=== PATIENT | male | born 1975 | race Caucasian/White ===

== ENCOUNTER 2017-11-29 20:25 | Emergency (ER) | payer OTHER ==
--- NOTE | 2017-11-29 20:43 | PDOC ---
History of Present Illness - General History Source: Patient Exam Limitations: No Limitations - History of Present Illness Initial Comments: 11/29/17 22:51 The patient is a 42-year-old male, with a significant past medical history of throat cancer, who presents to the ED with 2 weeks of lower back pain that progressively worsened today. The lower back pain is worse with movement and is accompanied by dysuria and frequency. Patient denies noting blood in his urine. He has been taking 5mg of oxycodone with mild relief of his symptoms. Patient also endorses a rash to the right lower extremity that has been getting worse over the past few days. He reports taking anabolic steroids and testosterone. Patient is currently on methadone. The patient denies any fevers, chills, nausea, vomiting, diarrhea, or abdominal pain. Denies any chest pain or shortness of breath. Allergies: NKA Surgical History: Right hand surgery -1994 Social History: Reports tobacco use, cocaine use, and heroin use. PCP: Dr. Leavitt <Chanell Bond - Last Filed: 11/29/17 23:48> <Gloria Collado - Last Filed: 11/30/17 02:25> - General Chief Complaint: Respiratory Stated Complaint: COUGH Past History <Chanell Bond - Last Filed: 11/29/17 23:48> - Past Medical History Asthma: No Cancer: Yes (THROAT) Cardiac Disorders: No COPD: No Diabetes: No GI Disorders: No Disorders: No HTN: No Kidney Stones: No Seizures: No - Surgical History Abdominal Surgery: No Appendectomy: No Cardiac Surgery: No Cholecystectomy: No Lung Surgery: No Neurologic Surgery: No Orthopedic Surgery: Yes (R hand sx in 1994) - Reproductive History Testicular Surgery: No - Immunization History Td Vaccination: Yes Immunization Up to Date: Yes - Suicide/Smoking/Psychosocial Hx Smoking Status: Yes Smoking History: Current every day smoker Have you smoked in the past 12 months: Yes Number of Cigarettes Smoked Daily: 20 'Breaking Loose' booklet given: 08/13/11 Hx Alcohol Use: No Drug/Substance Use Hx: Yes Substance Use Type: Cocaine, Heroin Hx Substance Use Treatment: Yes <Gloria Collado - Last Filed: 11/30/17 02:25> - Past Medical History Allergies/Adverse Reactions: Allergies Allergy/AdvReac Type Severity Reaction Status Date / Time No Known Allergies Allergy Verified 09/01/14 21:26 Home Medications: Ambulatory Orders Methadone 80 mg PO DAILY 11/29/17 Nandrolone Decanoate 11/29/17 Oxycodone HCl 5 mg PO PRN PRN 11/29/17 Testosterone 11/29/17 Review of Systems - Review of Systems Able to Perform ROS?: Yes Comments:: 11/29/17 22:51 CONSTITUTIONAL: Absent: fever, chills, diaphoresis, generalized weakness, malaise, loss of appetite HEENT: Absent: rhinorrhea, nasal congestion, throat pain, throat swelling, difficulty swallowing, mouth swelling, ear pain, eye pain, visual Changes CARDIOVASCULAR: Absent: chest pain, syncope, palpitations, irregular heart rate, lightheadedness , peripheral edema RESPIRATORY: Absent: cough, shortness of breath, dyspnea with exertion, orthopnea, wheezing, stridor, hemoptysis GASTROINTESTINAL: Absent: abdominal pain, abdominal distension, nausea, vomiting, diarrhea, constipation, melena, hematochezia GENITOURINARY: Present: (+)frequency, dysuria. Absent: urgency, hesitancy, hematuria, flank pain, genital pain MUSCULOSKELETAL: Present: (+)back pain. Absent: arthralgia, joint swelling SKIN: Absent: rash, itching, pallor HEMATOLOGIC/IMMUNOLOGIC: Absent: easy bleeding, easy bruising, lymphadenopathy, frequent infections ENDOCRINE: Absent: unexplained weight gain, unexplained weight loss, heat intolerance, cold intolerance NEUROLOGIC: Absent: headache, focal weakness or paresthesias, dizziness, unsteady gait, seizure, mental status changes, bladder or bowel incontinence PSYCHIATRIC: Absent: anxiety, depression, suicidal or homicidal ideation, hallucinations. <Chanell Bond - Last Filed: 11/29/17 23:48> *Physical Exam - Vital Signs Last Vital Signs Temp Pulse Resp BP Pulse Ox 98.7 F 74 14 150/100 98 11/29/17 20:57 11/29/17 20:57 11/29/17 20:57 11/29/17 20:57 11/29/17 20:57 - Physical Exam Comments: 11/29/17 22:53 GENERAL: Well developed, well nourished. Awake and alert. No acute distress. HEENT: Normocephalic, atraumatic. PERRLA, EOMI. No conjunctival pallor. Sclera are non- icteric. Moist mucous membranes. Oropharynx is clear. NECK: Supple. Full ROM. No JVD. Carotid pulses 2+ and symmetric, without bruits. No thyromegaly. No lymphadenopathy. CARDIOVASCULAR: Regular rate and rhythm. No murmurs, rubs, or gallops. Distal pulses are 2+ and symmetric. PULMONARY: No evidence of respiratory distress. Lungs clear to auscultation bilaterally. No wheezing, rales or rhonchi. ABDOMINAL: (+) Moderate RLQ tenderness. Soft. Non-distended. No rebound or guarding. No organomegaly. Normoactive bowel sounds. MUSCULOSKELETAL (+)CVA and flank tenderness, midline vertebral tenderness. Normal range of motion at all joints. No bony deformities. EXTREMITIES: No cyanosis. No clubbing. No edema. No calf tenderness. SKIN: Warm and dry. Normal capillary refill. No rashes. No jaundice. NEUROLOGICAL: Alert, awake, appropriate. Cranial nerves 2-12 intact. No deficits to light touch and temperature in face, upper extremities and lower extremities. PSYCHIATRIC: Cooperative. Good eye contact. Appropriate mood and affect. <Chanell Bond - Last Filed: 11/29/17 23:48> ED Treatment Course - ADDITIONAL ORDERS Additional order review: Laboratory Results 11/29/17 20:48 Urine Color Yellow Urine Appearance Clear Urine pH 5.5 Ur Specific [place] >= 1.030 Urine Protein Negative Urine Glucose (UA) Negative Urine Ketones Negative Urine Blood Trace-intact H Urine Nitrite Negative Urine Bilirubin 1+ H Urine Urobilinogen 1.0 Ur Leukocyte Esterase Negative Urine RBC 5-10 Urine WBC 0-2 Urine Bacteria 1+ <Chanell Bond - Last Filed: 11/29/17 23:48> - LABORATORY CBC & Chemistry Diagram: 11/30/17 00:19 11/30/17 00:19 <Gloria Collado - Last Filed: 11/30/17 02:25> Medical Decision Making - Medical Decision Making Documentation has been prepared under my direction and personally reviewed by me in its entirety. I attest that this documented accurately reflects all work, treatment, procedures and medical decision making performed by me. As noted above, this 42-year-old man with a history of using anabolic steroids and testosterone (unclear whether he is still using these substances), laryngeal carcinoma, chronic lower back pain , fatty liver and borderline hypertension presents with several day history of lower back pain radiating to the right flank/right lower quadrant. Patient also complained of mild burning with urination and intermittent blood in his urine. He also described an episode of hematospermia. He has not had any recent nausea/vomiting/ constipation or diarrhea. Patient has a history of parenteral opioid (heroin) and cocaine addiction. He is currently on daily methadone treatment. Exam as noted. Patient had right CVA/flank tenderness with some right lower quadrant tenderness. Urinalysis notable for microscopic exam showing RBCs (5-10 /hpf) as well as some WBCs and 1+ bacteria. Urine sent for culture and sensitivity Because of the patient's CVA/flank/right lower quadrant symptoms and microscopic hematuria, CT/spiral renal stone protocol performed. Impression as per Dr. Hennessy of the radiology staff: No urinary tract calculus or hydroureteronephrosis was identified. However, comparison was made to a prior CT exam a 08/22/07 and significant appendiceal thickening was found: Previous thickness was 0.6 cm. Tonight, appendix was 1.3 cm thick. There was also some possible development of minimal periappendiceal stranding. Appendix is positioned at the right upper pelvis. No evidence of perforation/abscess or other acute findings in the right lower quadrant. CT was otherwise unremarkable. Results discussed with the patient and his . Reexamination confirmed that the patient had moderate right lower quadrant tenderness without rebound or involuntary guarding. Plan to evaluate laboratory results (CBC/chemistry profile/INR) and surgical consult discussed with the patient. Patient states that he absolutely needed to go home for a time after laboratory tests were drawn. He was informed that he needed to sign out AGAINST MEDICAL ADVICE prior to leaving. Patient agreed to this. Laboratory tests were drawn and patient signed out AMA. He states he will be returning to the ER 11/30/17 02:22 Laboratory evaluation revealed mild elevation of white blood cell count 11,200 with out significant shift. Chemistry profile is essentially normal as is INR. <Gloria Collado - Last Filed: 11/30/17 02:25> *DC/Admit/Observation/Transfer - Attestations Scribe Attestion: 11/29/17 22:56 Documentation prepared by Chanell Bond, acting as hospital medical assistant for Gloria Collado MD. <Chanell Bond - Last Filed: 11/29/17 23:48> <Gloria Collado - Last Filed: 11/30/17 02:25> Diagnosis at time of Disposition: Abdominal pain Qualifiers: Abdominal location: right lower quadrant Qualified Code(s): R10.31 - Right lower quadrant pain - Discharge Dispostion Disposition: AGAINST MEDICAL ADVICE Condition at time of disposition: Guarded
[2017-11-29 20:56] LABS: PH,URINE 5.5 (4.5-8); URINE APPEARANCE Clear; URINE BILIRUBIN 1+ (NEGATIVE); URINE COLOR Yellow; URINE GLUCOSE (UA) Negative (NEGATIVE); URINE KETONE Negative (NEGATIVE); URINE LEUK ESTERASE Negative (NEGATIVE); URINE NITRITE Negative (NEGATIVE); URINE PROTEIN Negative (NEGATIVE)
[2017-11-29 20:59] VITALS: BP 150/100; PULSE 74; TEMP 98.7; BMI 32.6
[2017-11-29 21:41] LABS: URINE WBC 0-2 (0-2)
[2017-11-29 21:42] LABS: URINE BACTERIA 1+ /hpf (NEGATIVE)
[2017-11-30 01:16] LABS: BASO % 0.8 % (0-2.0); EOS % 4.5 % (0-4.5); HEMOGLOBIN 15.1 GM/dL (11.7-16.9); LYMPH % 25.6 % (8-40); MCH 28.8 pg (25.7-33.7); MCHC 32.1 g/dl (32.0-35.9); MEAN CELL VOLUME 89.6 fl (80-96); MEAN PLT VOLUME 7.4 fl (7.5-11.1); MONO % 7.7 % (3.8-10.2); NEUT % 61.4 % (42.8-82.8); PLATELET COUNT 404 K/MM3 (134-434); RBC 5.25 M/mm3 (4.00-5.60); RDW 15.5 % (11.9-15.9); WHITE BLOOD COUNT 11.6 K/mm3 (4.0-10.0)
[2017-11-30 01:29] LABS: INR 0.98 (0.83-1.09); PROTHROMBIN TIME (PATIENT) 11.6 SEC (9.7-13.0)
[2017-11-30 01:40] LABS: ALBUMIN 3.7 g/dl (3.4-5.0); ALK PHOS 45 U/L (45-117); ANION GAP 6 MMOL/L (8-16); BILIRUBIN,TOTAL 0.4 mg/dL (0.2-1); BLOOD UREA NITROGEN 12 mg/dL (7-18); CALCIUM 9.5 mg/dL (8.5-10.1); CHLORIDE 100 mmol/L (98-107); CO2 33 mmol/L (21-32); CREATININE 1.2 mg/dL (0.55-1.3); GLUCOSE,RANDOM 72 mg/dL (74-106); POTASSIUM 4.9 mmol/L (3.5-5.1); SGOT/AST 28 U/L (15-37); SGPT/ALT 30 U/L (13-61); SODIUM 140 mmol/L (136-145); TOT PROT 8.2 g/dl (6.4-8.2)
== END 2017-11-30 00:21 | disposition left against medical advice (07) ==
LOC: FER 20:25
DX: R10.31 Right lower quadrant pain (principal); F17.210 Nicotine dependence, cigarettes, uncomplicated
CPT/HCPCS: 36415; 74176; 80053; 81003; 81015; 85025; 85610; 87086; 99281-25

== ENCOUNTER 2017-12-27 16:18 | Emergency (ER) | payer OTHER ==
--- NOTE | 2017-12-27 16:24 | PDOC ---
Rapid Medical Evaluation Chief Complaint: Pain Time Seen by Provider: 12/27/17 16:20 Medical Evaluation: Allergies Allergy/AdvReac Type Severity Reaction Status Date / Time No Known Allergies Allergy Verified 09/01/14 21:26 12/27/17 16:21 I have performed a brief in person evaluation of the patient. The patient presents with a CC of: Abdominal pain Pt is a 42 Yo male who has a hx of RLQ pain. Denies fever, denies hx of abd surgeries. PE: Skin: No visible rash Lungs: Clear Heart:RRR Abd: Pt has RLQ tenderness. MS: Moves all extremities without difficulty Neuro: Alert and oriented Psych: Appropriate affect I have ordered the following: abd protocol at this time. The patient will proceed to the ED for further evaluation. Discharge Disposition - Diagnosis Abdominal pain Qualifiers: Abdominal location: right lower quadrant Qualified Code(s): R10.31 - Right lower quadrant pain - Referrals Referrals: Yudelka Leavitt MD [Primary Care Provider] - - Patient Instructions - Post Discharge Activity
[2017-12-27 16:28] VITALS: BP 129/91; PULSE 108; TEMP 98.6; BMI 34.7
[2017-12-27 17:01] LABS: BASO % 0.3 % (0-2.0); EOS % 5.3 % (0-4.5); HEMATOCRIT 44.7 % (35.4-49); HEMOGLOBIN 15.3 GM/dL (11.7-16.9); LYMPH % 26.2 % (8-40); MCH 29.5 pg (25.7-33.7); MCHC 34.3 g/dl (32.0-35.9); MEAN CELL VOLUME 86.1 fl (80-96); MEAN PLT VOLUME 7.3 fl (7.5-11.1); MONO % 8.1 % (3.8-10.2); NEUT % 60.1 % (42.8-82.8); PLATELET COUNT 282 K/MM3 (134-434); RBC 5.19 M/mm3 (4.00-5.60); WHITE BLOOD COUNT 8.2 K/mm3 (4.0-10.0)
--- NOTE | 2017-12-27 17:31 | PDOC ---
History of Present Illness - General Chief Complaint: Pain Stated Complaint: CHEST PAIN Time Seen by Provider: 12/27/17 16:20 - History of Present Illness Initial Comments: 12/27/17 17:26 Patient eloped before I met or examined him Patient was not in examining room, not able to find in ED. Patient was called multiple times by nurse. Was informed patient had a IV line in place and presumed to have eloped. Incident report filled out. Police called. Past History - Past Medical History Allergies/Adverse Reactions: Allergies Allergy/AdvReac Type Severity Reaction Status Date / Time No Known Allergies Allergy Verified 12/27/17 16:25 Home Medications: Ambulatory Orders Methadone 80 mg PO DAILY 11/29/17 Nandrolone Decanoate 11/29/17 Oxycodone HCl 5 mg PO PRN PRN 11/29/17 Testosterone 11/29/17 Asthma: No Cancer: Yes (THROAT) Cardiac Disorders: No COPD: No Diabetes: No GI Disorders: No Disorders: No HTN: No Kidney Stones: No Seizures: No - Surgical History Abdominal Surgery: No Appendectomy: No Cardiac Surgery: No Cholecystectomy: No Lung Surgery: No Neurologic Surgery: No Orthopedic Surgery: Yes (R hand sx in 1994) - Reproductive History Testicular Surgery: No - Immunization History Td Vaccination: Yes Immunization Up to Date: Yes - Suicide/Smoking/Psychosocial Hx Smoking Status: Yes Smoking History: Current every day smoker Have you smoked in the past 12 months: Yes Number of Cigarettes Smoked Daily: 20 Information on smoking cessation initiated: No 'Breaking Loose' booklet given: 08/13/11 Hx Alcohol Use: No Drug/Substance Use Hx: Yes Substance Use Type: Cocaine, Heroin Hx Substance Use Treatment: Yes *Physical Exam - Vital Signs Last Vital Signs Temp Pulse Resp BP Pulse Ox 98.6 F 108 H 18 129/91 98 12/27/17 16:20 12/27/17 16:20 12/27/17 16:20 12/27/17 16:20 12/27/17 16:20 ED Treatment Course - LABORATORY CBC & Chemistry Diagram: 12/27/17 16:40 12/27/17 16:40 - ADDITIONAL ORDERS Additional order review: 12/27/17 16:40 RBC 5.19 MCV 86.1 MCHC 34.3 RDW 15.0 MPV 7.3 L Neutrophils % 60.1 Lymphocytes % 26.2 Monocytes % 8.1 Eosinophils % 5.3 H Basophils % 0.3 *DC/Admit/Observation/Transfer Diagnosis at time of Disposition: Abdominal pain Qualifiers: Abdominal location: right lower quadrant Qualified Code(s): R10.31 - Right lower quadrant pain - Referrals Referrals: Yudelka Leavitt MD [Primary Care Provider] - - Patient Instructions - Post Discharge Activity
== END 2017-12-27 17:31 | disposition left against medical advice (07) ==
LOC: JER 16:18
DX: R10.31 Right lower quadrant pain (principal)
CPT/HCPCS: 36415; 83690; 85025; 99281-25

== ENCOUNTER 2017-12-27 19:39 | Emergency (ER) | payer OTHER ==
[2017-12-27 19:48] VITALS: BMI 32.8
[2017-12-27] MEDS ORDERED: ASPIRIN 81 MG CHEWABLE TABLETS PO ONE (19:48)
--- NOTE | 2017-12-27 19:48 | PDOC ---
Rapid Medical Evaluation Chief Complaint: Chest Pain Time Seen by Provider: 12/27/17 19:45 Medical Evaluation: Allergies Allergy/AdvReac Type Severity Reaction Status Date / Time No Known Allergies Allergy Verified 12/27/17 16:25 12/27/17 19:46 I have performed a brief in person evaluation of this patient. This patient presents with a CC of: CP and abd pain Pt is a 42 Yo male who eloped with an IV in place and was brought back to the ED and had the IV removed. Pt has a hx of IV drug use and now admits to substernal CP with lower extremity edema. Pt denies IV drug after eloping from ED returning. PE: Skin: Clear Lungs: Clear Heart: RRR Abd: No pain MS: Moves all extremities without difficulty. Neuro: Alert and oriented Psych: Appropriate affect I have ordered the following: Pt had abd protocol labs from previous visit today and i will add cardiac workup. The patient will proceed to the ED for further evaluation. Discharge Disposition - Diagnosis Chest pain Qualifiers: Chest pain type: unspecified Qualified Code(s): R07.9 - Chest pain, unspecified - Referrals Referrals: Yudelka Leavitt MD [Primary Care Provider] - - Patient Instructions - Post Discharge Activity
[2017-12-27] MEDS ORDERED: ASPIRIN 81 MG CHEWABLE TABLETS ONE (20:16)
[2017-12-27 20:58] LABS: INR 1.08 (0.83-1.09); PROTHROMBIN TIME (PATIENT) 12.8 SEC (9.7-13.0)
[2017-12-27 21:00] LABS: MAGNESIUM 2.1 mg/dL (1.8-2.4)
--- NOTE | 2017-12-27 22:41 | PDOC ---
History of Present Illness - General History Source: Patient Exam Limitations: No Limitations - History of Present Illness Initial Comments: 12/27/17 22:42 The patient is a 42-year-old male, with a significant past medical history of throat cancer, who presents to the ED with 4 weeks of intermittent, throbbing, right lower quadrant pain. He reports being evaluated at [facility] ED about 3 weeks ago for pain, had an abdominal CT, and was told he has an appendicitis 5x bigger than it was 10 years ago. He states he left AMA when he was told he needed surgery because he cant have surgery right now. He states the pain resolved, however, has been experiencing localized throbbing to his RLQ intermittently in the last 5 days. He states his pain has made him very anxious and also complains of palpitations and chest discomfort. The patient is currently on methadone. He states he has a follow-up appt with Dr. Glover next week. The patient denies any fevers, chills, nausea, vomiting, diarrhea. The patient denies shortness of breath. He denies any urinary complaints. He denies any diarrhea or constipation. Allergies: NKDA Surgical History: Right hand surgery -1994 Social History: Reports tobacco use, cocaine use, and IV heroin use. PCP: Dr. Leavitt <Avani Carter - Last Filed: 12/27/17 22:41> <Yumiko Gonzalez - Last Filed: 12/27/17 23:00> - General Chief Complaint: Pain Stated Complaint: CHEST PAIN Time Seen by Provider: 12/27/17 19:45 Past History <Avani Carter - Last Filed: 12/27/17 22:41> - Past Medical History Asthma: No Cancer: Yes (THROAT) Cardiac Disorders: No COPD: No Diabetes: No GI Disorders: No Disorders: No HTN: No Kidney Stones: No Seizures: No - Surgical History Abdominal Surgery: No Appendectomy: No Cardiac Surgery: No Cholecystectomy: No Lung Surgery: No Neurologic Surgery: No Orthopedic Surgery: Yes (R hand sx in 1994) - Reproductive History Testicular Surgery: No - Immunization History Td Vaccination: Yes Immunization Up to Date: Yes - Suicide/Smoking/Psychosocial Hx Smoking Status: Yes Smoking History: Current every day smoker Have you smoked in the past 12 months: Yes Number of Cigarettes Smoked Daily: 20 Information on smoking cessation initiated: No 'Breaking Loose' booklet given: 08/13/11 Hx Alcohol Use: No Drug/Substance Use Hx: Yes Substance Use Type: Cocaine, Heroin Hx Substance Use Treatment: Yes <Yumiko Gonzalez - Last Filed: 12/27/17 23:00> - Past Medical History Allergies/Adverse Reactions: Allergies Allergy/AdvReac Type Severity Reaction Status Date / Time No Known Allergies Allergy Verified 12/27/17 19:49 Home Medications: Ambulatory Orders Methadone 80 mg PO DAILY 11/29/17 Nandrolone Decanoate 11/29/17 Oxycodone HCl 5 mg PO PRN PRN 11/29/17 Testosterone 11/29/17 Review of Systems - Review of Systems Able to Perform ROS?: Yes Comments:: 12/27/17 22:42 CONSTITUTIONAL: Absent: fever, chills, diaphoresis, generalized weakness, malaise, loss of appetite HEENT: Absent: rhinorrhea, nasal congestion, throat pain, throat swelling, difficulty swallowing, mouth swelling, ear pain, eye pain, visual Changes CARDIOVASCULAR: (+) palpitations, chest discomfort. Absent: chest pain, syncope, irregular heart rate, lightheadedness, peripheral edema RESPIRATORY: Absent: cough, shortness of breath, dyspnea with exertion, orthopnea, wheezing, stridor, hemoptysis GASTROINTESTINAL: (+) RLQ abdominal pain, Absent: abdominal distension, nausea, vomiting, diarrhea , constipation, melena, hematochezia GENITOURINARY: Absent: dysuria, frequency, urgency, hesitancy, hematuria, flank pain, genital pain MUSCULOSKELETAL: Absent: myalgia, arthralgia, joint swelling SKIN: Absent: rash, itching, pallor HEMATOLOGIC/IMMUNOLOGIC: Absent: easy bleeding, easy bruising, lymphadenopathy, frequent infections ENDOCRINE: Absent: unexplained weight gain, unexplained weight loss, heat intolerance, cold intolerance NEUROLOGIC: Absent: headache, focal weakness or paresthesias, dizziness, unsteady gait, seizure, mental status changes, bladder or bowel incontinence PSYCHIATRIC: Absent: anxiety, depression, suicidal or homicidal ideation, hallucinations. <Avani Carter - Last Filed: 12/27/17 22:41> *Physical Exam - Vital Signs Last Vital Signs Temp Pulse Resp BP Pulse Ox 98 F 96 H 18 191/97 H 99 12/27/17 19:44 12/27/17 19:44 12/27/17 19:44 12/27/17 19:44 12/27/17 19:44 - Physical Exam Comments: 12/27/17 22:42 GENERAL: Well developed, well nourished. Awake and alert. No acute distress. HEENT: Normocephalic, atraumatic. PERRLA, EOMI. No conjunctival pallor. Sclera are non- icteric. Moist mucous membranes. Oropharynx is clear. NECK: Supple. Full ROM. No JVD. Carotid pulses 2+ and symmetric, without bruits. No thyromegaly. No lymphadenopathy. CARDIOVASCULAR: Regular rate and rhythm. No murmurs, rubs, or gallops. Distal pulses are 2+ and symmetric. PULMONARY: No evidence of respiratory distress. Lungs clear to auscultation bilaterally. No wheezing, rales or rhonchi. ABDOMINAL: Soft. Non-tender. Non-distended. No rebound or guarding. No organomegaly. Normoactive bowel sounds. MUSCULOSKELETAL Normal range of motion at all joints. No bony deformities or tenderness. No CVA tenderness. EXTREMITIES: (+) Bilateral 2+ pitting edema with chronic venous stasis changes. Slightly erythematous. No cyanosis. No clubbing. No calf tenderness. SKIN: Warm and dry. Normal capillary refill. No rashes. No jaundice. NEUROLOGICAL: Alert, awake, appropriate. Cranial nerves 2-12 intact. Normoreflexic in the upper and lower extremities. Normal speech. Toes are down-going bilaterally. Gait is normal without ataxia. PSYCHIATRIC: Cooperative. Good eye contact. Appropriate mood and affect. <Avani Carter - Last Filed: 12/27/17 22:41> - Vital Signs Last Vital Signs Temp Pulse Resp BP Pulse Ox 98 F 96 H 18 191/97 H 99 12/27/17 19:44 12/27/17 19:44 12/27/17 19:44 12/27/17 19:44 12/27/17 19:44 <Yumiko Gonzalez - Last Filed: 12/27/17 23:00> ED Treatment Course - ADDITIONAL ORDERS Additional order review: Laboratory Results 12/27/17 12/27/17 20:22 20:21 PT with INR 12.80 INR 1.08 Magnesium 2.1 Creatine Kinase 220 Creatine Kinase Index 1.0 CK-MB (CK-2) 2.3 Troponin I < 0.02 - Medications Given in the ED: ED Medications Discontinued Medications Generic Name Dose Route Start Last Admin Trade Name Freq PRN Reason Stop Dose Admin Aspirin 162 mg 12/27/17 19:48 12/27/17 20:22 Asa - PO 12/27/17 19:49 162 mg ONCE ONE Administration <Avani Carter - Last Filed: 12/27/17 22:41> - ADDITIONAL ORDERS Additional order review: Laboratory Results 12/27/17 12/27/17 20:22 20:21 PT with INR 12.80 INR 1.08 Magnesium 2.1 Creatine Kinase 220 Creatine Kinase Index 1.0 CK-MB (CK-2) 2.3 Troponin I < 0.02 - RADIOLOGY Radiology Studies Ordered: Category Date Time Status DUPLEX VASCUL US-2LEGS [US] Stat Ultrasound 12/27/17 21:56 Taken - Medications Given in the ED: ED Medications Discontinued Medications Generic Name Dose Route Start Last Admin Trade Name Freq PRN Reason Stop Dose Admin Aspirin 162 mg 12/27/17 19:48 12/27/17 20:22 Asa - PO 12/27/17 19:49 162 mg ONCE ONE Administration <Yumiko Gonzalez - Last Filed: 12/27/17 23:00> *DC/Admit/Observation/Transfer - Attestations Scribe Attestion: 12/27/17 22:44 Documentation prepared by Avani Carter, acting as medical appointment clerk for Yumiko Gonzalez MD <Avani Carter - Last Filed: 12/27/17 22:41> <Yumiko Gonzalez - Last Filed: 12/27/17 23:00> Diagnosis at time of Disposition: Chronic abdominal pain Chest pain Qualifiers: Chest pain type: unspecified Qualified Code(s): R07.9 - Chest pain, unspecified - Discharge Dispostion Disposition: HOME Condition at time of disposition: Stable - Referrals Referrals: Yudelka Leavitt MD [Primary Care Provider] - Edmond Glover MD [Staff Physician] - - Patient Instructions Printed Discharge Instructions: DI for Abdominal Pain-Adult, DI for Palpitations, DI for Peripheral Edema -- Bilateral Additional Instructions: Please follow up with your home health attendant for the abdominal pain you have been having for some time. You may need a colonoscopy. Call Dr Glover and make an appointment with him for further evaluation You need to see your primary doctor because of the swelling in your legs. - Post Discharge Activity
[2017-12-27 23:22] VITALS: PULSE 88; TEMP 97.8
[2017-12-27 23:25] VITALS: BP 160/93
--- NOTE | 2017-12-29 11:11 | EKG ---
Test Reason : Blood Pressure : / mmHG Vent. Rate : 092 BPM Atrial Rate : 092 BPM P-R Int : 138 ms QRS Dur : 092 ms QT Int : 356 ms P-R-T Axes : 058 042 021 degrees QTc Int : 440 ms NORMAL SINUS RHYTHM MINIMAL VOLTAGE CRITERIA FOR LVH, MAY BE NORMAL VARIANT BORDERLINE ECG WHEN COMPARED WITH ECG OF 28-AUG-2005 09:13, NO SIGNIFICANT CHANGE WAS FOUND Confirmed by KAELA SHETTY, BERYL ([id number]) on 12/29/2017 11:11:10 AM Referred By: Confirmed By:BERYL SHERWOOD MD
== END 2017-12-27 23:32 | disposition home or self-care (01) ==
LOC: JER 19:39
DX: R07.9 Chest pain, unspecified (principal); R10.31 Right lower quadrant pain; G89.29 Other chronic pain; Z85.819 Personal history of malignant neoplasm of unspecified site of lip, oral cavity, and pharynx
CPT/HCPCS: 36415; 71046-TC-FY; 82550; 82553; 83735; 84484; 85610; 93005; 93010; 93970-TC; 99282-25

== ENCOUNTER 2018-06-13 12:06 | Inpatient (IN) | payer OTHER ==
[2018-06-13 16:51] VITALS: BMI 36.9
--- NOTE | 2018-06-13 17:51 | HP ---
COWS - Scale Resting Pulse: 2= VT 101-120 Sweatin= Chills/Flushing Restless Observation: 1= Difficult to Sit Still Pupil Size: 1= Pupils >than Normal Bone or Joint Aches: 1= Mild Discomfort Runny Nose/ Eye Tearin= Nasal Congestion GI Upset > 30mins: 1= Stomach Cramp Tremor Observation: 1= Tremor [place], Not Seen Yawning Observation: 1= 1-2x During Session Anxiety or Irritability: 2=Irritable/Anxious Goose Flesh Skin: 0=Smooth Skin COWS Score: 12 CIWA Score - Admission Criteria [facility]ASAS Guidelines: Admission for Medically Managed Detox: Requires at least one of the followin. CIWA greater than 12 2. Seizures within the past 24 hours 3. Delirium tremens within the past 24 hours 4. Hallucinations within the past 24 hours 5. Acute intervention needed for co occurring medical disorder 6. Acute intervention needed for co occurring psychiatric disorder 7. Severe withdrawal that cannot be handled at a lower level of care (continued vomiting, continued diarrhea, abnormal vital signs) requiring intravenous medication and/or fluids 8. Admission ROS [facility] Chief Complaint: heroin withdrawal symptoms Allergies/Adverse Reactions: Allergies Allergy/AdvReac Type Severity Reaction Status Date / Time No Known Allergies Allergy Verified 06/13/18 16:43 History of Present Illness: 43 yo male with hx of heroin (IV) dependence is here seeking detox d/t withdrawal symptoms. Denies engaging in needle sharing activities. Report mandated to attend by parole. Patient reports he AMA the [facility]MTP at [facility] two months ago and pain management. PMHX: GERD, Back pain. Psych: Anxiety. Denies hx of seizures, overdose or blackouts Reports no significant period of sobriety Last detox [facility] 10 years ago. Others' Prescriptions Patient Name: Too Ordoñez Date: 1975 Address: [address] [place] [address] Sex: Male Rx Written Rx Dispensed Drug Quantity Days Supply Prescriber Name 02/18/2018 02/22/2018 oxycodone hcl 5 mg tablet 90 30 Adrian Hooper M 01/04/2018 01/21/2018 oxycodone hcl 5 mg tablet 90 30 Adrian Hooper M 12/05/2017 12/09/2017 oxycodone hcl 5 mg tablet 90 30 Adrian Hooper M 11/11/2017 11/12/2017 oxycodone hcl 5 mg tablet 90 30 Adrian Hooper M 09/16/2017 09/19/2017 oxycodone-acetaminophen 5-325 mg tab 90 30 Adrian Hooper M Patient Name: Too Ordoñez Date: 1975 Address: [address] [place] [address] Sex: Male Rx Written Rx Dispensed Drug Quantity Days Supply Prescriber Name 12/08/2017 12/17/2017 clonazepam 1 mg tablet 10 10 Dagmar, Ammir S Patient Name: Too Ordoñez Date: 1975 Address: [address] [place] [address] Sex: Male Rx Written Rx Dispensed Drug Quantity Days Supply Prescriber Name 08/31/2017 08/31/2017 oxycodone-acetaminophen 5-325 mg tab 28 7 Adrian Hooper M Exam Limitations: No Limitations - Ebola screening Have you traveled outside of the country in the last 21 days: No Have you had contact with anyone from an Ebola affected area: No - Review of Systems Constitutional: Chills, Diaphoresis, Changes in sleep, Other (weight gain 50 lbs in past five months) EENT: reports: Nose Congestion Respiratory: reports: No Symptoms reported Cardiac: reports: No Symptoms Reported GI: reports: Abdominal cramping : reports: No Symptoms Reported Musculoskeletal: reports: Back Pain Integumentary: reports: Other (darkening skin both lower extremites, bilateral leg swelling) Neuro: reports: No Symptoms reported Endocrine: reports: Increased Thirst, Unexplained Weight Gain Hematology: reports: No Symptoms Reported Psychiatric: reports: Orientated x3, Anxious Other Systems: Reviewed and Negative Patient History - Patient Medical History Hx Anemia: No Hx Asthma: No Hx Chronic Obstructive Pulmonary Disease (COPD): No Hx Cancer: Yes (THROAT) Hx Cardiac Disorders: No Hx Congestive Heart Failure: No Hx Hypertension: No Hx Hypercholesterolemia: No Hx Pacemaker: No HX Cerebrovascular Accident: No Hx Seizures: No Hx Dementia: No Hx Diabetes: No Hx Gastrointestinal Disorders: Yes (GERD ) Hx Liver Disease: No Hx Genitourinary Disorders: No Hx Sexually Transmitted Disorders: No Hx Renal Disease (ESRD): No Hx Thyroid Disease: No Hx Human Immunodeficiency Virus (HIV): No Hx Hepatitis C: No Hx Depression: No Hx Suicide Attempt: No Hx Bipolar Disorder: No Hx Schizophrenia: No - Patient Surgical History Past Surgical History: Yes Hx Neurologic Surgery: No Hx Cataract Extraction: No Hx Cardiac Surgery: No Hx Lung Surgery: No Hx Breast Surgery: No Hx Breast Biopsy: No Hx Abdominal Surgery: No Hx Appendectomy: No Hx Cholecystectomy: No Hx Genitourinary Surgery: No Hx Section: No Hx Orthopedic Surgery: Yes (R hand sx in 1994) - PPD History Previous Implant?: No Documented Results: Negative w/proof Date: 08/15/11 PPD to be Administered?: Yes - Smoking Cessation Smoking history: Current every day smoker Have you smoked in the past 12 months: Yes Aproximately how many cigarettes per day: 20 Hx Chewing Tobacco Use: No Initiated information on smoking cessation: Yes 'Breaking Loose' booklet given: 06/13/18 - Substance & Tx. History Hx Alcohol Use: No Hx Substance Use: Yes Substance Use Type: Heroin Hx Substance Use Treatment: Yes ([facility] detox 10 years ago ) - Substances abused Heroin Substance route: Injection Frequency: Daily Amount used: 30 bags Age of first use: 26 Date of last use: 06/12/18 Family Disease History - Family Disease History Family Disease History: Diabetes: Mother (alive ), Heart Disease: Father ([place], ), Respiratory: Mother Admission Physical Exam [facility] - Vital Signs Vital Signs: Vital Signs - 24 hr 06/13/18 06/13/18 16:48 16:50 Temperature 98.8 F 98.8 F Pulse Rate 108 H 108 H Respiratory 18 18 Rate Blood Pressure 131/78 131/78 - Physical General Appearance: Yes: Disheveled, Mild Distress, Obese, Tremorous, Sweating, Anxious HEENTM: Yes: EOMI, Hearing grossly Normal, Normal ENT Inspection, Normal Voice, WILLY, Pharynx Normal, Tm's normal, Other (cheilitis) Respiratory: Yes: Chest Non-Tender, Lungs Clear, Normal Breath Sounds, No Respiratory Distress, No Accessory Muscle Use Neck: Yes: No masses,lesions,Nodules, Trachea in good position Breast: Yes: Breast Exam Deferred Cardiology: Yes: Regular Rhythm, Regular Rate Abdominal: Yes: Normal Bowel Sounds, Non Tender, Soft, Protuberent Genitourinary: Yes: Within Normal Limits Back: Yes: Normal Inspection Musculoskeletal: Yes: full range of Motion, Gait Steady, Pelvis Stable, Back pain Extremities: Yes: Normal Capillary Refill, Normal Range of Motion, Non-Tender, Other (+hyperpigmentation b/l lower extremities, +2 edema b/l lower extremities) Neurological: Yes: facilities officer II-XII NML intact, Fully Oriented, Alert, Motor Strength 5/5, Normal Response, Depressed Affect Integumentary: Yes: Normal Color, Warm, Diaphoresis, Track Dennis (left anticubital fossa, no infection) Lymphatic: Yes: Within Normal Limits - Diagnostic (1) Opioid dependence with withdrawal Current Visit: Yes Status: Acute (2) IVDU (intravenous drug user) Current Visit: Yes Status: Acute (3) GERD (gastroesophageal reflux disease) Current Visit: Yes Status: Chronic (4) Chronic back pain Current Visit: Yes Status: Chronic Cleared for Admission [facility] - Detox or Rehab [facility] Level of Care: Medically Managed Detox Regimen/Protocol: Methadone Breathalyzer - Breathalyzer Breathalyzer: 0 Urine Drug Screen - Test Device Lot number: [id number] Expiration date: 01/21/20 - Control Is test valid?: Yes - Results Drug screen NEGATIVE: No Urine drug screen results: KAREN-Cocaine, FEN-Fentanyl, MOP-Opiates, OXY-Oxycodone , MTD-Methadone Inpatient Rehab Admission - Rehab Decision to Admit Inpatient rehab admission?: No
[2018-06-13] MEDS ORDERED: BISMUTH SUBSALICYLATE 524 MG/30 ML UD PO PRN (17:58)
[2018-06-13] MEDS ORDERED: MENTHOL/PHENOL 1 EACH UD MM PRN (17:58)
[2018-06-13] MEDS ORDERED: MAGNESIUM CITRATE 300 ML BOTTLE PO PRN (17:58)
[2018-06-13] MEDS ORDERED: ONDANSETRON *ODT* 4 MG TABLET SL PRN (17:58)
[2018-06-13] MEDS ORDERED: NICOTINE POLACRILEX 2 MG GUM BUC PRN (17:58)
[2018-06-13] MEDS ORDERED: ACETAMINOPHEN 325 MG TABLET (FP) PO PRN ×2 (17:58)
[2018-06-13] MEDS ORDERED: IBUPROFEN 400 MG TABLET (FP) PO PRN ×2 (17:58→18:04)
[2018-06-13] MEDS ORDERED: MAGNESIUM HYDROX 2400MG/30ML ORAL SUSPENSION 30 ML CUP PO PRN (17:58)
[2018-06-13] MEDS ORDERED: MAG HYDROX/AL HYDROX/SIMETH 30 ML UNIT-DOSE CUP PO PRN (17:58)
[2018-06-13] MEDS ORDERED: METHADONE HCL 10 MG TABLET (FOR DETOX USE ONLY) PO ONE ×2 (18:45→23:00)
[2018-06-13] MEDS: THIAMINE HCL 100 MG TABLET (FP) PO SCH (22:26)
[2018-06-13] MEDS: MELATONIN 5 MG TABLETS PO PRN (22:26)
[2018-06-13] MEDS: METHOCARBAMOL 500 MG TABLET PO PRN (22:27)
[2018-06-13] MEDS: RANITIDINE HCL 150 MG TABLET (FP) PO SCH (22:27)
--- NOTE | 2018-06-14 08:12 | CONSULT ---
[facility] Psychiatric Consult - Data Date of interview: 06/14/18 Admission source: [place] Identifying data: Ms Ordoñez is a 43 years old single male, unemployed with no source of income, domiciled living in a one family house seeking detox treatment for opioid Substance Abuse History: Reports history of heroin use. Refer to addiction counselor's summary for further information Medical History: Significant for GERD, back pain, history of treatment for throat cancer and orthosurgery for fracture ofright hand in 1994. Smokes cigarettes 1 ppd Psychiatric History: Patient reports that he [facility] , 2014 and . Reports while in [facility], he spent a lot of time in solitary confinement. 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 He said that he was offered medication but declined it. Reports that since his release, he has been feeling anxious, experiencing a lot of nightmares, flasbacks and being disturb by noises etc. Denies previous psychiatric hospitalization or suicidal attempt. At present, reports feeling depressed, anxious and sleeping poorly Physical/Sexual Abuse/Trauma History: Denies history of emotional, physical or sexual abuse as well ass DV relationship Additional Comment: Reports history of previous arrests and has served in [facility] 3 times: , and . He is currently on parole till April 2019 Mental Status Exam - Mental Status Exam Alert and Oriented to: Time, Place, Person Cognitive Function: Fair Patient Appearance: Disheveled Mood: Depressed, Anxious Affect: Appropriate Patient Behavior: Cooperative Speech Pattern: Clear Voice Loudness: Normal Thought Process: Intact, Goal Oriented Hallucinations: Denies Suicidal Ideation: Denies Homicidal Ideation: Denies Insight/Judgement: Poor Sleep: Poorly Appetite: Good Muscle strength/Tone: Normal Gait/Station: Normal Psychiatric Findings - Problem List ([place] 1, 2,3) (1) Anxiety disorder Current Visit: Yes Status: Chronic (2) PTSD (post-traumatic stress disorder) Current Visit: Yes Status: Ruled-out (3) Substance induced mood disorder Current Visit: Yes Status: Acute (4) Substance-induced anxiety disorder Current Visit: Yes Status: Acute (5) Substance-induced sleep disorder Current Visit: Yes Status: Acute (6) Opioid dependence with withdrawal Current Visit: Yes Status: Acute (7) Nicotine dependence Current Visit: Yes Status: Chronic (8) Chronic back pain Current Visit: Yes Status: Chronic (9) GERD (gastroesophageal reflux disease) Current Visit: Yes Status: Chronic - Initial Treatment Plan Initial Treatment Plan: 1) Start Melatonin 5 mg po HS prn for insomnia. 2) Continue inpatient detoxification
[2018-06-14] MEDS ORDERED: METHADONE HCL 5 MG TABLET (FOR DETOX USE ONLY) PO ONE (10:00)
[2018-06-14] MEDS: RANITIDINE HCL 150 MG TABLET (FP) PO SCH ×2 (10:09→22:17)
[2018-06-14] MEDS: NICOTINE 21 MG/24 HOURS TOPICAL PATCH TD SCH (10:09)
[2018-06-14] MEDS: PRENATAL VITAMINS W/ FOLIC ACID TABLET (FP) PO SCH (10:09)
[2018-06-14] MEDS: cloNIDine HCL 0.1 MG TABLET PO PRN ×2 (10:12→22:17)
[2018-06-14] MEDS: METHOCARBAMOL 500 MG TABLET PO PRN ×2 (10:13→22:17)
--- NOTE | 2018-06-14 10:32 | EKG ---
Test Reason : Blood Pressure : / mmHG Vent. Rate : 088 BPM Atrial Rate : 088 BPM P-R Int : 146 ms QRS Dur : 086 ms QT Int : 380 ms P-R-T Axes : 056 029 013 degrees QTc Int : 459 ms NORMAL SINUS RHYTHM POSSIBLE LEFT ATRIAL ENLARGEMENT LEFT VENTRICULAR HYPERTROPHY ABNORMAL ECG WHEN COMPARED WITH ECG OF 27-DEC-2017 19:54, NO SIGNIFICANT CHANGE WAS FOUND Confirmed by BRADY SHETTY, YUNIOR ([id number]) on 06/14/2018 10:31:58 AM Referred By: Confirmed By:YUNIOR ABREU MD
--- NOTE | 2018-06-14 11:11 | PN ---
BHS COWS - Scale Resting Pulse: 1= [place] 81-100 Sweatin=Flushed/Facial Moisture Restless Observation: 1= Difficult to Sit Still Pupil Size: 0= Normal to Room Light Bone or Joint Aches: 2= Severe Diffuse Aches Runny Nose/ Eye Tearin= Runny Nose/Eyes GI Upset > 30mins: 1= Stomach Cramp Tremor Observation of Outstretched Hands: 2= Slight Tremor Visible Yawning Observation: 2= >3x During Session Anxiety or Irritability: 2=Irritable/Anxious Goose Flesh Skin: 3=Piloerection COWS Score: 18 BHS Progress Note (SOAP) Subjective: cold sweats shakes interrupted sleep body aches muscle cramps Objective: 06/14/18 11:14 Vital Signs Temperature 98.2 F 06/14/18 10:28 Pulse Rate 83 06/14/18 10:28 Respiratory Rate 18 06/14/18 10:28 Blood Pressure 122/62 06/14/18 10:28 O2 Sat by Pulse Oximetry (%) labs pending aaox3 lying in bed no acute distress Assessment: 06/14/18 11:14 withdrawal sx Plan: continue detox increase fluids labs pending robaxin ordered prn
[2018-06-14 12:10] LABS: HEMATOCRIT 38.6 % (35.4-49); HEMOGLOBIN 13.2 GM/dL (11.7-16.9); MCH 32.2 pg (25.7-33.7); MCHC 34.3 g/dl (32.0-35.9); MEAN CELL VOLUME 93.9 fl (80-96); MEAN PLT VOLUME 7.3 fl (7.5-11.1); PLATELET COUNT 261 K/MM3 (134-434); RBC 4.11 M/mm3 (4.00-5.60); RDW 13.2 % (11.9-15.9); WHITE BLOOD COUNT 10.4 K/mm3 (4.0-10.0)
[2018-06-14 12:19] LABS: ALBUMIN 3.5 g/dl (3.4-5.0); ALK PHOS 64 U/L (45-117); ANION GAP 7 MMOL/L (8-16); BILIRUBIN,TOTAL 0.9 mg/dL (0.2-1); BLOOD UREA NITROGEN 11 mg/dL (7-18); CALCIUM 8.9 mg/dL (8.5-10.1); CHLORIDE 102 mmol/L (98-107); CO2 29 mmol/L (21-32); CREATININE 0.9 mg/dL (0.55-1.3); GLUCOSE,RANDOM 89 mg/dL (74-106); SGOT/AST 25 U/L (15-37); SGPT/ALT 50 U/L (13-61); SODIUM 138 mmol/L (136-145); TOT PROT 7.2 g/dl (6.4-8.2)
[2018-06-14] MEDS: diazePAM 5 MG TABLET PO PRN ×2 (15:31→19:42)
[2018-06-14] MEDS: THIAMINE HCL 100 MG TABLET (FP) PO SCH (22:17)
[2018-06-14] MEDS: MELATONIN 5 MG TABLETS PO PRN (22:18)
[2018-06-15] MEDS ORDERED: METHADONE HCL 10 MG TABLET (FOR DETOX USE ONLY) PO ONE (10:00)
[2018-06-15] MEDS ORDERED: hydrOXYzine PAMOATE 50 MG CAPSULE (FP) PO PRN (10:17)
[2018-06-15] MEDS: NICOTINE 21 MG/24 HOURS TOPICAL PATCH TD SCH (10:19)
[2018-06-15] MEDS: diazePAM 5 MG TABLET PO PRN ×3 (10:22→23:17)
[2018-06-15] MEDS: RANITIDINE HCL 150 MG TABLET (FP) PO SCH ×2 (10:22→22:06)
[2018-06-15] MEDS: PRENATAL VITAMINS W/ FOLIC ACID TABLET (FP) PO SCH (10:22)
--- NOTE | 2018-06-15 13:31 | PN ---
BHS COWS - Scale Resting Pulse: 1= [place] 81-100 Sweatin=Flushed/Facial Moisture Restless Observation: 0= Sits Still Pupil Size: 0= Normal to Room Light Bone or Joint Aches: 2= Severe Diffuse Aches Runny Nose/ Eye Tearin= Nasal Congestion GI Upset > 30mins: 0= None Tremor Observation of Outstretched Hands: 2= Slight Tremor Visible Yawning Observation: 1= 1-2x During Session Anxiety or Irritability: 2=Irritable/Anxious Goose Flesh Skin: 0=Smooth Skin COWS Score: 11 BHS Progress Note (SOAP) Subjective: sweats shakes chills body aches Objective: 06/15/18 13:30 Vital Signs Temperature 97.9 F 06/15/18 09:09 Pulse Rate 68 06/15/18 09:09 Respiratory Rate 18 06/15/18 09:09 Blood Pressure 124/86 06/15/18 09:09 O2 Sat by Pulse Oximetry (%) Laboratory Tests 06/14/18 06/14/18 06/14/18 07:30 07:30 07:30 WBC 10.4 H RBC 4.11 Hgb 13.2 Hct 38.6 MCV 93.9 MCH 32.2 MCHC 34.3 RDW 13.2 D Plt Count 261 MPV 7.3 L Sodium 138 Potassium 4.0 Chloride 102 Carbon Dioxide 29 Anion Gap 7 L BUN 11 Creatinine 0.9 Creat Clearance w eGFR 92.10 Random Glucose 89 Calcium 8.9 Total Bilirubin 0.9 AST 25 ALT 50 Alkaline Phosphatase 64 Total Protein 7.2 Albumin 3.5 RPR Titer HIV 1&2 Antibody Screen Negative HIV P24 Antigen Negative 06/14/18 07:30 WBC RBC Hgb Hct MCV MCH MCHC RDW Plt Count MPV Sodium Potassium Chloride Carbon Dioxide Anion Gap BUN Creatinine Creat Clearance w eGFR Random Glucose Calcium Total Bilirubin AST ALT Alkaline Phosphatase Total Protein Albumin RPR Titer Nonreactive HIV 1&2 Antibody Screen HIV P24 Antigen aaox3 ambulating no acute distress Assessment: 06/15/18 13:30 withdrawal sx Plan: continue detox increase fluids
[2018-06-15] MEDS: THIAMINE HCL 100 MG TABLET (FP) PO SCH (22:06)
[2018-06-15] MEDS: cloNIDine HCL 0.1 MG TABLET PO PRN (22:06)
[2018-06-15 23:09] LABS: PH,URINE 7.5 (5.0-8.0); URINE APPEARANCE CLEAR; URINE BILIRUBIN NEGATIVE (NEGATIVE); URINE COLOR YELLOW; URINE GLUCOSE (UA) NEGATIVE (NEGATIVE); URINE KETONE NEGATIVE (NEGATIVE); URINE LEUK ESTERASE NEGATIVE (NEGATIVE); URINE NITRITE NEGATIVE (NEGATIVE); URINE PROTEIN NEGATIVE (NEGATIVE)
[2018-06-16] MEDS ORDERED: METHADONE HCL 5 MG TABLET (FOR DETOX USE ONLY) PO ONE (06:00)
--- NOTE | 2018-06-16 09:01 | DS ---
[facility] Detox Discharge Summary Admission Date: 06/13/18 Discharge Date: 06/16/18 - History Present History: Cocaine Dependence, Opioid Dependence - Physical Exam Results Vital Signs: Vital Signs Temperature 97.7 F 06/16/18 06:00 Pulse Rate 65 06/16/18 06:00 Respiratory Rate 18 06/16/18 06:00 Blood Pressure 140/82 06/16/18 06:00 O2 Sat by Pulse Oximetry (%) - Treatment Hospital Course: Detox Protocol Followed, Detoxed Safely, Responded well, Discharged Condition Good, Rehab Referral Accepted - Medication Discharge Medications: Ambulatory Orders Oxycodone HCl 5 mg PO PRN PRN MDD 25mg 11/29/17 - Diagnosis (1) IVDU (intravenous drug user) Current Visit: Yes Status: Acute (2) Opioid dependence with withdrawal Current Visit: Yes Status: Chronic (3) Substance induced mood disorder Current Visit: Yes Status: Acute (4) Substance-induced anxiety disorder Current Visit: Yes Status: Acute (5) Substance-induced sleep disorder Current Visit: Yes Status: Acute (6) Anxiety disorder Current Visit: Yes Status: Chronic (7) Chronic back pain Current Visit: Yes Status: Chronic Qualifiers: Back pain location: low back pain (8) GERD (gastroesophageal reflux disease) Current Visit: Yes Status: Chronic Qualifiers: Esophagitis presence: without esophagitis Qualified Code(s): K21.9 - Gastro -esophageal reflux disease without esophagitis (9) Nicotine dependence Current Visit: Yes Status: Chronic Qualifiers: Nicotine product type: cigarettes Substance use status: uncomplicated Qualified Code(s): F17.210 - Nicotine dependence, cigarettes, uncomplicated (10) PTSD (post-traumatic stress disorder) Current Visit: Yes Status: Ruled-out (11) Cocaine dependence Current Visit: Yes Status: Active (12) Abdominal pain Current Visit: No Status: Acute Qualifiers: Abdominal location: right lower quadrant Qualified Code(s): R10.31 - Right lower quadrant pain (13) Chest pain Current Visit: No Status: Acute Qualifiers: Chest pain type: unspecified Qualified Code(s): R07.9 - Chest pain, unspecified (14) Chronic abdominal pain Current Visit: No Status: Acute (15) Laryngitis Current Visit: No Status: Acute (16) Tonsillitis Current Visit: No Status: Acute - AMA Did Patient Leave Against Medical Advice: No (referred to [facility] rehab)
[2018-06-16 09:20] VITALS: BP 156/99; PULSE 88; TEMP 98.3
[2018-06-16] MEDS: RANITIDINE HCL 150 MG TABLET (FP) PO SCH (10:16)
[2018-06-16] MEDS: PRENATAL VITAMINS W/ FOLIC ACID TABLET (FP) PO SCH (10:16)
== END 2018-06-16 09:16 | disposition home or self-care (01) | DRG 773 ==
LOC: YASAS 12:06 → Y6N 18:16
PROVIDERS: ADMIT Surgery; ATTEND Surgery
PROC: HZ2ZZZZ Detoxification Services for Substance Abuse Treatment (ICD-10-PCS; principal; 2018-06-13)
DX: F11.23 Opioid dependence with withdrawal (principal); F14.20 Cocaine dependence, uncomplicated; F17.220 Nicotine dependence, chewing tobacco, uncomplicated; F19.24 Other psychoactive substance dependence with psychoactive substance-induced mood disorder; F19.280 Other psychoactive substance dependence with psychoactive substance-induced anxiety disorder; F19.282 Other psychoactive substance dependence with psychoactive substance-induced sleep disorder; F43.10 Post-traumatic stress disorder, unspecified; K21.9 Gastro-esophageal reflux disease without esophagitis; M54.5 Low back pain; G89.29 Other chronic pain; R10.31 Right lower quadrant pain; R07.9 Chest pain, unspecified; J30.9 Allergic rhinitis, unspecified; J04.0 Acute laryngitis
CPT/HCPCS: 36415; 80053; 81003; 85027; 86593; 86803; 87389; 93005; 93010; J0735

== ENCOUNTER 2018-07-04 17:59 | Inpatient (IN) | payer OTHER | END 2018-07-05 09:50 | disposition left against medical advice (07) | LOC: YASAS 17:59 → Y3N 21:11 ==

== ENCOUNTER 2018-07-18 14:27 | Day surgery (SDC) | payer OTHER ==
--- NOTE | 2018-07-18 14:31 | PDOC ---
History of Present Illness - General Chief Complaint: Pain, Acute Stated Complaint: RLQ ABD Time Seen by Provider: 07/18/18 14:30 - History of Present Illness Initial Comments: The pt is a 43M w/ a history of heroin use and reported previous visit w/ evidence of appendicitis on CT who presents for evaluation of 18 hours of RLQ abdominal pain that has been constant, worsening, non-radiating, worse with movement and touch, and alleviated by sitting and somewhat by heroin. He states he used 2 bags of heroin at 0400. He denies fevers/chills, [place], vision changes, chest pain, trouble breathing, N/V/ C/D, dysuria, or hematuria. Pt reports that he was previously evaluated for similar symptoms several months ago, but decided to AMA at that time because he did not with to undergo surgery. 07/18/18 15:15 Past History - Past Medical History Allergies/Adverse Reactions: Allergies Allergy/AdvReac Type Severity Reaction Status Date / Time No Known Allergies Allergy Verified 07/18/18 14:27 Home Medications: Ambulatory Orders NK [No Known Home Medication] 07/18/18 Anemia: No Asthma: No Cancer: No Cardiac Disorders: No CVA: No COPD: No CHF: No Dementia: No Diabetes: No GI Disorders: No Disorders: No HTN: No Hypercholesterolemia: No Kidney Stones: No Liver Disease: No Seizures: No Thyroid Disease: No - Surgical History Abdominal Surgery: No Appendectomy: No Cardiac Surgery: No Cholecystectomy: No Lung Surgery: No Neurologic Surgery: No Orthopedic Surgery: Yes (R hand sx in 1994) - Reproductive History Testicular Surgery: No - Immunization History Td Vaccination: Yes Immunization Up to Date: Yes - Suicide/Smoking/Psychosocial Hx Smoking Status: Yes Smoking History: Current every day smoker Have you smoked in the past 12 months: Yes Number of Cigarettes Smoked Daily: 20 'Breaking Loose' booklet given: 07/04/18 Hx Alcohol Use: No Drug/Substance Use Hx: Yes Substance Use Type: Heroin Hx Substance Use Treatment: No Review of Systems - Review of Systems Able to Perform ROS?: Yes Comments:: GENERAL/CONSTITUTIONAL: No fever or chills. No weakness HEAD, EYES, EARS, NOSE AND THROAT: No change in vision. No ear pain or discharge. No sore throat CARDIOVASCULAR: No chest pain or shortness of breath RESPIRATORY: Denies cough, hemoptysis GASTROINTESTINAL: No nausea, vomiting, diarrhea or constipation GENITOURINARY: No dysuria, frequency, or change in urination MUSCULOSKELETAL: No joint or muscle swelling or pain. No neck or back pain SKIN: No rash NEUROLOGIC: No headache, vertigo, loss of consciousness, or change in strength/ sensation ENDOCRINE: No increased thirst. No abnormal weight change HEMATOLOGIC/LYMPHATIC: No anemia, easy bleeding, or history of blood clots ALLERGIC/IMMUNOLOGIC: No hives or skin allergy 07/18/18 14:31 Is the patient limited Lebanese proficient: No *Physical Exam - Vital Signs Initial Vital Signs Temp Pulse Resp BP Pulse Ox 98.4 F 113 H 19 147/97 95 07/18/18 14:27 07/18/18 14:27 07/18/18 14:07/18/18 14:07/18/18 14:07/18/18 18:59 - Physical Exam Comments: GENERAL: Awake, alert, and oriented to person/place/time HEAD: No signs of trauma, normocephalic, atraumatic EYES: PERRLA, EOMI, sclera anicteric, conjunctiva clear ENT: Hearing grossly normal, nares patent, oropharynx clear without exudates. Moist mucosa LUNGS: No distress, speaks full sentences, clear to auscultation bilaterally HEART: Regular rate and rhythm, normal S1 and S2, no murmurs appreciated, peripheral pulses normal and equal bilaterally ABDOMEN: Soft, RLQ TTP w/ rebound and minimal guarding; Referred RLQ pain from LLQ; non-distended EXTREMITIES: Normal inspection, Normal range of motion, no edema. No clubbing or cyanosis NEUROLOGICAL: Cranial nerves II through XII grossly intact. Normal speech, normal gait, no focal sensorimotor deficits SKIN: Warm, Dry 07/18/18 14:31 ED Treatment Course - LABORATORY CBC & Chemistry Diagram: 07/18/18 14:48 07/18/18 14:48 Medical Decision Making - Medical Decision Making The pt is a 43M w/ a history of heroin abuse who presents for evaluation of RLQ abdominal pain for 1 day. Ddx includes appendicitis, nephrolithiasis, diverticulitis, intra-abdominal abscess, hernia; consider bowel obstruction ED Course CMP, CBC, Coags, T/S ECG CXR CT A&P w/ IV and PO Contrast IVF Ofirmev for pain No leukocytosis No anemia Lytes wnl No EUGENIE LFTs unremarkable ECG w/ sinus tachycardia; HR 103; QTc 461; no evidence of acute ischemia CXR w/o acute pathology 07/18/18 17:24 CT A&P w/ IV and PO contrast Impression: The proximal third of the appendix appears slightly thickened with a 7 mm diameter. No definite associated periappendiceal edema or fluid accumulation is seen. This appearance could be on the basis of appendicitis ? acute versus chronic. Similar although more prominent appendiceal thickening was visualized on a prior CT study of 11/29/2017. In addition mild periappendiceal edema was noted at the time of the previous study suggestive of acute/subacute appendicitis. If surgery is deferred at this time correlation with colonoscopy is suggested to exclude neoplastic disease. Development of diffuse hepatic steatosis is noted. The current urinary bladder volume is approximately 700 mL - ? representing prominent physiologic distention versus possible retention. Correlate clinically. Moderate colonic fecal retention. Small umbilical hernia containing fat only. After obtaining results of UDS, patient admits to using Methadone 20-30mg PO yesterday from an old prescription as well as Klonopin. Denies ecstasy use outright and states that he thinks it may have been in the heroin he used yesterday. Re-clarified medical history and patient denies ever having a diagnosis of cancer. 07/18/18 17:[address] Gomez, will plan for admission and surgical evaluation in AM. -NPO -IVF -No abx at this time -[facility] for pain 07/18/18 19:01 *DC/Admit/Observation/Transfer Diagnosis at time of Disposition: Opioid abuse Abdominal pain Qualifiers: Abdominal location: unspecified location Qualified Code(s): R10.9 - Unspecified abdominal pain Appendicitis Qualifiers: Appendicitis type: unspecified Qualified Code(s): K37 - Unspecified appendicitis - Discharge Dispostion Condition at time of disposition: Good Decision to Admit order: Yes - Referrals Referrals: Yudelka Leavitt MD [Primary Care Provider] - - Patient Instructions - Post Discharge Activity
[2018-07-18 14:33] VITALS: BMI 35.2
[2018-07-18] MEDS ORDERED: ACETAMINOPHEN 1000 MG/100 ML VIAL (NON FORMULARY) IVPB ONE (14:36)
[2018-07-18] MEDS ORDERED: SODIUM CHLORIDE 0.9% 500 ML INFUS.BAG IV ONE (14:36)
[2018-07-18] MEDS ORDERED: ACETAMINOPHEN INJECTION 100 ML IVPB ONE (14:49)
[2018-07-18 15:09] LABS: ACTIVATED PTT 27.7 SECONDS (25.2-36.5)
[2018-07-18 15:11] LABS: ALBUMIN 3.9 g/dl (3.4-5.0); BILIRUBIN,TOTAL 1.4 mg/dl (0.2-1); CALCIUM 8.9 mg/dl (8.5-10); CREATININE 0.9 mg/dl (0.55-1.3); POTASSIUM 4.1 mmol/L (3.5-5.1); TOT PROT 7.9 g/dl (6.4-8.2)
[2018-07-18 15:14] LABS: INR 1.19 (0.82-1.09); PROTHROMBIN TIME (PATIENT) 12.9 SEC (10.2-13.0)
--- NOTE | 2018-07-18 15:58 | PDOC ---
Attending Attestation - Resident Resident Name: Rui Wild - ED Attending Attestation I have performed the following: I have examined & evaluated the patient, The case was reviewed & discussed with the resident, I agree w/resident's findings & plan, Exceptions are as noted - HPI HPI: 43 yo M history heroin use, prior ED visit with acute appendicitis presenting with 18 hours of RLQ pain. He has been taking oxycodone and heroin for pain. Pain was much worse since last night. Worse with any movement, including bumps during car ride. - Physicial Exam PE: GENERAL: Awake, alert, and fully oriented, in no acute distress. Appears pale, ill HEAD: No signs of trauma EYES: PERRLA, EOMI, sclera anicteric, conjunctiva clear ENT: Auricles normal inspection, hearing grossly normal, nares patent, oropharynx clear without exudates. Dry mucosa NECK: Normal ROM, supple, no lymphadenopathy, JVD, or masses LUNGS: Breath sounds equal, clear to auscultation bilaterally. No wheezes, and no crackles HEART: Regular rate and rhythm, normal S1 and S2, no murmurs, rubs or gallops ABDOMEN: Soft, diffusely tender, hypoactive bowel sounds. +Guarding, +Rebound. No masses EXTREMITIES: Normal range of motion, 2+ pitting edema to BLE with chronic stasis changes. No clubbing or cyanosis. No cords, erythema, or tenderness NEUROLOGICAL: Cranial nerves II through XII grossly intact. Normal speech, normal gait. Motor and sensation intact SKIN: Warm, Dry, normal turgor, no rashes or lesions noted. - Medical Decision Making Patient is ill-appearing, with stated history of appendicitis that was not treated (he left the hospital AMA, no follow up). Concern for ruptured appendicitis in light of the recent worsening of the pain, or possibly abscess formation. Will obtain labs and CT.
[2018-07-18 17:00] LABS: BASO % 0.6 % (0-2.0); HEMATOCRIT 41.5 % (35.4-49); HEMOGLOBIN 13.5 GM/dL (11.7-16.9); LYMPH % 19.1 % (8-40); MCH 30.2 pg (25.7-33.7); MCHC 32.6 g/dl (32.0-35.9); MEAN CELL VOLUME 92.7 fl (80-96); MEAN PLT VOLUME 7.4 fl (7.5-11.1); MONO % 5.4 % (3.8-10.2); NEUT % 72.9 % (42.8-82.8); PLATELET COUNT 268 K/MM3 (134-434); RBC 4.47 M/mm3 (4.00-5.60); RDW 13.4 % (11.9-15.9); WHITE BLOOD COUNT 9.8 K/mm3 (4.0-10.0)
[2018-07-18 17:55] LABS: COCAINE, UR NEGATIVE ng/ml (CUTOFF=300); PHENCYCLIDINE,URINE NEGATIVE ng/ml (CUTOFF=25); URINE AMPHETAMINES NEGATIVE ng/ml (CUTOFF=500); URINE BARBITURATES NEGATIVE ng/ml (CUTOFF=200)
[2018-07-18 18:00] LABS: METHADONE, UR POSITIVE ng/ml (CUTOFF=300); OPIATES, URI POSITIVE ng/ml (CUTOFF=300); URINE BENZODIAZEPINES POSITIVE ng/ml (CUTOFF=200)
[2018-07-18] MEDS ORDERED: SODIUM CHLORIDE 1,000 ML IV SCH (18:00)
[2018-07-18] MEDS ORDERED: IBUPROFEN 800 MG/8 ML IJ IVPB ONE ×2 (18:35→18:45)
--- NOTE | 2018-07-18 21:01 | HP ---
Admitting History and Physical - Primary Care Physician PCP: dr. Leavitt - Admission Chief Complaint: RLQ pain History of Present Illness: 43 year old M with h/o tobacco dependence, chronic sinusitis and opiate dependence (previously on methadone maintenance) presents to the ER with complaints of RLL pain overnight. PT reports pain started 6months ago, but attributed symptoms to "gas pain". Mr. Ordoñez was evaluated in [facility] ED in Dec 2017 for RLQ painbut eloped prior to completing evaluation. Of note he had underwent abd CT in Nov 2017 for right flank pain/hematuria which demonstrated diffuse appendiceal thickening and subtle soft tissue stranding which may represent acute/subacute appendicitis. Patient reports his most recent exacerbation started overnight at approximately 8pm while tussling with a friend. He described pain as sharp localized 10/10 associated with diaphoresis and dissipated after several hours. He denies N/V/D , but admits to using two bags of heroin to control his pain. At 5am on 07/18, his pain returned and decided that he would seek medical attention during the course of the day. Upon presenting to [facility], Vitals were BP 147/97, RR 19, HR 113bpm, T 98.4, O2 sat 95%. ECG w/ sinus tachycardia; HR 103; QTc 461; no evidence of acute ischemia CXR w/o acute pathology CT abd/pelvis with contrast: the proximal third of the appendix appears slightly thickened with a 7 mm diameter. Surgery was consulted. Pt made NPO and treated with IVF, IV tylenol and motrin. 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 History of Recent Travel: No Home Medications - Allergies Allergies/Adverse Reactions: Allergies Allergy/AdvReac Type Severity Reaction Status Date / Time No Known Allergies Allergy Verified 07/18/18 14:27 - Home Medications Home Medications: Ambulatory Orders NK [No Known Home Medication] 07/18/18 Family Disease History - Family Disease History Family Disease History: Heart Disease: Father ( (73) [place]), Other: Mother (alive (68) DMII), Brother (well), Sister (well) Review of Systems - Review of Systems Constitutional: reports: Diaphoresis Eyes: reports: No Symptoms HENT: reports: No Symptoms Neck: reports: No Symptoms Cardiovascular: reports: Edema Respiratory: reports: No Symptoms Gastrointestinal: reports: Abdominal Pain Genitourinary: reports: No Symptoms Breasts: reports: No Symptoms Reported Musculoskeletal: reports: No Symptoms Integumentary: reports: No Symptoms Neurological: reports: No Symptoms Endocrine: reports: No Symptoms Hematology/Lymphatic: reports: No Symptoms Physical Examination Vital Signs: Vital Signs Temperature 98.8 F 07/18/18 17:52 Pulse Rate 93 H 07/18/18 17:52 Respiratory Rate 18 07/18/18 17:52 Blood Pressure 137/98 07/18/18 17:52 O2 Sat by Pulse Oximetry (%) 96 07/18/18 17:52 Constitutional: Yes: Well Nourished, No Distress, Calm Eyes: Yes: Conjunctiva Clear, PERRL HENT: Yes: Atraumatic, Normocephalic, Other (poor dentition) Neck: Yes: Supple, Trachea Midline Cardiovascular: Yes: Regular Rate and Rhythm Respiratory: Yes: Regular, CTA Bilaterally Gastrointestinal: Yes: Normal Bowel Sounds, Soft ...Rectal Exam: Yes: Deferred Renal/: Yes: WNL Musculoskeletal: Yes: WNL Extremities: Yes: Erythema (LEs hyperpigmented) Edema: Yes Edema: LLE: 1+, RLE: 1+ Peripheral Pulses WNL: Yes Peripheral Pulses: Left Radial: 2+, Right Radial: 2+ Integumentary: Yes: Tattoos, Venous Stasis Changes Neurological: Yes: Alert, Oriented ...Motor Strength: WNL Psychiatric: Yes: Alert, Oriented Labs: CBC, BMP 07/18/18 14:48 07/18/18 14:48 Imaging - Results Chest X-ray: Report Reviewed (CXR 07/19/2018 impression: WEak inspiration. Prominent mediastinum. no acute chest pathology. Reported by Dr. Issac Mariee ) Cat Scan: Report Reviewed (CT abd and pelvis 07/18/2018 Impression: The proximal third of the appendix appears slightly thickened with a 7 mm diameter. No definite associated periappendiceal edema or fluid accumulation is seen. This appearance could be on the basis of appendicitis ? acute versus chronic. Similar although more prominent appendiceal thickening was visualized on a prior CT study of 11/29/2017. In addition mild periappendiceal edema was noted at the time of the previous study suggestive of acute/subacute appendicitis. If surgery is deferred at this time correlation with colonoscopy is suggested to exclude neoplastic disease. Development of diffuse hepatic steatosis is noted. The current urinary bladder volume is approximately 700 mL - ? representing prominent physiologic distention versus possible retention. Correlate clinically. Moderate colonic fecal retention. Small umbilical hernia containing fat only.) Problem List - Problems (1) Appendicitis Assessment/Plan: Surgery following NPO IVF IV Tylenol/ motrin PRN moderate pain Morphine PRN severe pain no antibiotics as recommended by surgery Code(s): K37 - UNSPECIFIED APPENDICITIS Qualifiers: Appendicitis type: unspecified Qualified Code(s): K37 - Unspecified appendicitis (2) IVDU (intravenous drug user) Assessment/Plan: monitor closely for withdrawal pt may need pain management consult if pain not well controlled with morphine, tylenol and motrin Code(s): F19.90 - OTHER PSYCHOACTIVE SUBSTANCE USE, UNSPECIFIED, UNCOMPLICATED (3) Prophylactic measure Assessment/Plan: SCD for LE edema SC heparin BID, hold AM dose in preparation for possible appendectomy OOB to chair as tolerated NPO, Ice chips until midnight Code(s): Z29.9 - ENCOUNTER FOR PROPHYLACTIC MEASURES, UNSPECIFIED Assessment/Plan Code status: FULL Visit type - Emergency Visit Emergency Visit: Yes ED Registration Date: 07/18/18 Care time: The patient presented to the Emergency Department on the above date and was hospitalized for further evaluation of their emergent condition. - New Patient This patient is new to me today: Yes Date on this admission: 07/18/18 - Critical Care Critical Care patient: No
[2018-07-18] MEDS ORDERED: ACETAMINOPHEN 325 MG TABLET (FP) PO PRN (21:29)
[2018-07-18] MEDS ORDERED: ACETAMINOPHEN 1000 MG/100 ML VIAL (NON FORMULARY) IVPB PRN (21:33)
[2018-07-18] MEDS ORDERED: HEPARIN NA (PORCINE) 5,000 UNITS/ML 1ML VIAL SQ SCH (22:00)
[2018-07-18] MEDS: morphine CARPU-JECT 2 MG/1 ML DISP.SYRIN IVPUSH PRN (22:34)
[2018-07-19 08:52] LABS: ACTIVATED PTT 27.5 SECONDS (25.2-36.5)
[2018-07-19 08:56] LABS: INR 1.23 (0.82-1.09); PROTHROMBIN TIME (PATIENT) 13.3 SEC (10.2-13.0)
--- NOTE | 2018-07-19 09:37 | CONSULT ---
Consult Consult Specialty:: General Surgery Referred by:: Charline Wild Reason for Consultation:: possible appendicitis - History of Present Illness Chief Complaint: RLQ pain, nausea, anorexia History of Present Illness: 43yo obese M, polysubstance abuser, presented to ER with RLQ pain beginning 2 nights ago after "tussling" with a friend. Initially thought he may have pulled something, but had sweating and low-grade fever at home that night, and developed anorexia and some nausea, leading to not eating yesterday at all. He used some heroin for the pain, but it persisted, and he came to ER, where he had normal WBC, was afebrile, and CT showed mildly enlarged proximal third of the appendix, which had been much more enlarged and inflamed throughout its length last November, at which time he left AMA. He denies diarrhea or constipation, last soft BM 2d ago. No vomiting. Pain is still there, in RLQ, and it hurts more with movement. Today's labs are still pending. He has received IV fluids and Tylenol and ibuprofen, but no antibiotics yet. Surgery was asked to assess. He is seen and examined in bed, alert and cooperative. He left his methadone program a while ago, after hoarding his weekend bottles. He states he was on 65mg daily, and they wanted to increase the dose, but he was hoping to decrease and get off, not increase. - History Source History Provided By: Patient Limitations to Obtaining History: No Limitations - Past Medical History Psych: Yes: Addictions (heroin, tobacco) Musculoskeletal: Yes: Chronic low back pain (disc problems) - Past Surgical History Additional Surgical History: hand surgery - Alcohol/Substance Use Hx Alcohol Use: No (in past, but not for years) History of Substance Use: reports: Cocaine (in past, not recently), Heroin ( injection use), Prescription (has used oxycodone and methadone as well), Tranquilizers (clonazepam from [facility] recently) Date of Last Use: 07/17/18 (heroin, 2 bags) - Smoking History Smoking history: Current every day smoker Have you smoked in the past 12 months: Yes Aproximately how many cigarettes per day: 20 (1PPD x 15yrs) - Social History Usual Living Arrangement: With Significant Other ADL: Independent 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 History of Recent Travel: No Home Medications - Allergies Allergies/Adverse Reactions: Allergies Allergy/AdvReac Type Severity Reaction Status Date / Time No Known Allergies Allergy Verified 07/18/18 14:27 - Home Medications Home Medications: Ambulatory Orders NK [No Known Home Medication] 07/18/18 Home Medications (free text): clonazepam Family Disease History - Family Disease History Family Disease History: Diabetes: Mother (alive (68) DMII), Heart Disease: Father ( (73) [place]), Other: Mother, Brother (well), Sister (well) Review of Systems - Review of Systems Constitutional: reports: Fever (100.3 at home 2 nights ago), Loss of Appetite, Night Sweats (2 nights ago) Eyes: denies: Blurred Vision, Recent Change in Vision HENT: denies: Difficult Swallowing, Throat Pain Neck: denies: Swollen Glands, Tenderness Cardiovascular: reports: Edema (BLE swelling), Palpitations (has had sensation of jumpy/skipping heart at times - not in last couple days). denies: Chest Pain Respiratory: denies: Cough, SOB Gastrointestinal: reports: Abdominal Pain (with hpi), Nausea (with hpi). denies : Constipation, Diarrhea, Vomiting Genitourinary: denies: Burning, Dysuria Musculoskeletal: reports: Back Pain (chronic). denies: Joint Pain, Muscle Pain Integumentary: denies: Change in Color, Rash Neurological: denies: Dizziness, Headache Endocrine: reports: Unexplained Weight Gain (~50 pounds in 6 months) Psychiatric: reports: Anxiety. denies: Depression Physical Exam Vital Signs: Vital Signs Temperature 97.9 F 07/19/18 05:00 Pulse Rate 80 07/19/18 05:00 Respiratory Rate 18 07/19/18 05:00 Blood Pressure 130/73 07/19/18 05:00 O2 Sat by Pulse Oximetry (%) 99 07/19/18 06:58 Constitutional: Yes: No Distress, Calm, Obese Eyes: Yes: Conjunctiva Clear, EOM Intact HENT: Yes: Atraumatic, Normocephalic Neck: Yes: Supple, Trachea Midline Cardiovascular: Yes: Regular Rate and Rhythm Respiratory: Yes: Regular, CTA Bilaterally Gastrointestinal: Yes: Normal Bowel Sounds, Soft, Abdomen, Obese, Tenderness ( RLQ with focal guarding only, referred from [facility] also). No: Tenderness, Rebound ...Rectal Exam: Yes: Deferred Renal/: No: CVA Tenderness - Left, CVA Tenderness - Right Musculoskeletal: No: Joint Stiffness, Joint Swelling Extremities: No: Cool, Cyanosis Edema: Yes (TEDS on) Edema: LLE: Trace, RLE: Trace Peripheral Pulses WNL: Yes Integumentary: Yes: Tattoos. No: Jaundice, Rash Neurological: Yes: Alert, Oriented Psychiatric: Yes: Alert, Oriented Labs: CMP Sodium 139 mmol/L (136-145) 07/18/18 14:48 Potassium 4.1 mmol/L (3.5-5.1) 07/18/18 14:48 Chloride 98 mmol/L (98-107) 07/18/18 14:48 Carbon Dioxide 28 mmol/L (21-32) 07/18/18 14:48 Anion Gap 13 MMOL/L (8-16) 07/18/18 14:48 BUN 7 mg/dl (7-18) 07/18/18 14:48 Creatinine 0.9 mg/dl (0.55-1.3) 07/18/18 14:48 Est GFR (CKD-EPI)AfAm 120.81 07/18/18 14:48 Est GFR (CKD-EPI)NonAf 104.24 07/18/18 14:48 Random Glucose 158 mg/dl (74-106) H 07/18/18 14:48 Calcium 8.9 mg/dl (8.5-10) 07/18/18 14:48 Total Bilirubin 1.4 mg/dl (0.2-1) H 07/18/18 14:48 AST 38 U/L (15-37) H 07/18/18 14:48 ALT 54 U/L (13-61) 07/18/18 14:48 Alkaline Phosphatase 64 U/L (45-117) 07/18/18 14:48 Total Protein 7.9 g/dl (6.4-8.2) 07/18/18 14:48 Albumin 3.9 g/dl (3.4-5.0) 07/18/18 14:48 am labs pending INR, PTT INR 1.23 (0.82-1.09) H 07/19/18 07:05 wbc 9.8 yesterday Hb 13.5 Urine Test Results Urine Color Blanca 05/28/19 14:38 Urine Appearance Clear 07/18/18 14:38 Urine pH 7.5 (4.5-8) 07/18/18 14:38 Urine Protein Negative (NEGATIVE) 07/18/18 14:38 Urine Glucose (UA) Negative (NEGATIVE) 07/18/18 14:38 Urine Ketones Trace (NEGATIVE) 07/18/18 14:38 Urine Blood 1+ (NEGATIVE) H 07/18/18 14:38 Urine Nitrite Negative (NEGATIVE) 07/18/18 14:38 Urine Bilirubin Negative (NEGATIVE) 07/18/18 14:38 Ur Leukocyte Esterase Negative (NEGATIVE) 07/18/18 14:38 Urine RBC 2-5 /hpf (0-4) 07/18/18 14:38 UTox + benzo, opiate, methadone; ecstasy (pt denies - "must have been in the stuff I used") last had 30mg methadone 2d ago, last heroin 2d ago, using klonopin from Dr. Leavitt Imaging - Results Cat Scan: Report Reviewed, Image Reviewed (images reviewed, including previous CT - appendix mildly enlarged in proximal third; was inflamed last November; minimal to no sig periappendiceal inflammatory changes now) Problem List - Problems (1) Other appendicitis Assessment/Plan: admitted to medicine given history and exam, along with CT findings, would agree that appendicitis is possible pt interested in having it out and eliminating future episodes keep NPO/IVF will start antibiotics now DVT prophylaxis Discussed with patient risks, benefits and alternatives of laparoscopic possible open appendectomy, including but not limited to bleeding, infection, injury to adjacent structures, intestinal leak or injury, intraabdominal abscess , incisional hernia, need for further procedures, ; alternatives include antibiotics, delayed or no surgery - risks of this include failure of nonoperative therapy, perforation, sepsis, recurrence, . Patient desires to proceed with operation - will take to OR today for above. Informed consent signed for same. Pt understands that postop pain management will be primarily alternating tylenol and ibuprofen. If narcotics are needed to avoid withdrawal, will defer to primary team and/or detox/pain manager management. Would recommend methadone over short-acting narcotics if required. anticipate resuming po postop and possible d/c tomorrow if doing well Discussed with Cristhian Guerrero Code(s): K36 - OTHER APPENDICITIS (2) RLQ abdominal pain Code(s): R10.31 - RIGHT LOWER QUADRANT PAIN (3) Anorexia Code(s): R63.0 - ANOREXIA (4) Opioid abuse Code(s): F11.10 - OPIOID ABUSE, UNCOMPLICATED (5) Benzodiazepine dependence Code(s): F13.20 - SEDATIVE, HYPNOTIC OR ANXIOLYTIC DEPENDENCE, UNCOMPLICATED (6) Nicotine dependence Code(s): F17.200 - NICOTINE DEPENDENCE, UNSPECIFIED, UNCOMPLICATED Qualifiers: Nicotine product type: cigarettes Substance use status: uncomplicated Qualified Code(s): F17.210 - Nicotine dependence, cigarettes, uncomplicated
--- NOTE | 2018-07-19 09:59 | PN ---
Physical Exam: SUBJECTIVE: Patient seen and examined at bedside. Anesthesiologist Dr. Vicente and OR Recycle Worker Winnie Negron present. Patient admits he has a supply of methadone at home although he does not regularly attend a methadone program. He also admits to active heroin use. Discussion about perioperative pain management. Explained to patient he will be not be given post-operative opioids. He expressed understanding and agreement with plan. OBJECTIVE: Vital Signs Period Temp Pulse Resp BP Sys/Alvarez Pulse Ox Last 24 Hr 97.9 F-98.8 F 69-113 17-19 112-147/73-98 95-99 GENERAL: The patient is awake, alert, and fully oriented, in no acute distress. LUNGS: Breath sounds equal, clear to auscultation bilaterally, no wheezes, no crackles, no accessory muscle use. HEART: Regular rate and rhythm, S1, S2 ABDOMEN: Soft, diffuse lower abdominal tenderness EXTREMITIES: 2+ pulses, warm, well-perfused, no edema. NEUROLOGICAL: Cranial nerves II through XII grossly intact. Normal speech, gait not observed. Laboratory Results - last 24 hr 07/18/18 07/18/18 07/18/18 14:38 14:38 14:47 WBC RBC Hgb Hct MCV MCH MCHC RDW Plt Count MPV Absolute Neuts (auto) Neutrophils % Lymphocytes % Monocytes % Eosinophils % Basophils % Nucleated RBC % PT with INR INR PTT (Actin FS) Sodium Potassium Chloride Carbon Dioxide Anion Gap BUN Creatinine Est GFR (CKD-EPI)AfAm Est GFR (CKD-EPI)NonAf Random Glucose Calcium Total Bilirubin AST ALT Alkaline Phosphatase Total Protein Albumin Urine Color Blanca Urine Appearance Clear Urine pH 7.5 Urine Protein Negative Urine Glucose (UA) Negative Urine Ketones Trace Urine Blood 1+ H Urine Nitrite Negative Urine Bilirubin Negative Urine Urobilinogen 0.2 Ur Leukocyte Esterase Negative Urine RBC 2-5 Opiates Screen Positive A* Methadone Screen Positive A* Barbiturate Screen Negative Phencyclidine Screen Negative Ur Amphetamines Screen Negative MDMA (Ecstasy) Screen Positive A* Benzodiazepines Screen Positive A* Cocaine Screen Negative U Marijuana (THC) Screen Negative Blood Type A POSITIVE Antibody Screen 07/18/18 07/18/18 07/18/18 14:48 14:48 14:48 WBC 9.8 RBC 4.47 Hgb 13.5 Hct 41.5 MCV 92.7 MCH 30.2 MCHC 32.6 RDW 13.4 Plt Count 268 MPV 7.4 L Absolute Neuts (auto) 7.1 Neutrophils % 72.9 D Lymphocytes % 19.1 D Monocytes % 5.4 Eosinophils % 2.0 Basophils % 0.6 Nucleated RBC % 0 PT with INR INR PTT (Actin FS) Sodium 139 Potassium 4.1 Chloride 98 Carbon Dioxide 28 Anion Gap 13 BUN 7 Creatinine 0.9 Est GFR (CKD-EPI)AfAm 120.81 Est GFR (CKD-EPI)NonAf 104.24 Random Glucose 158 H Calcium 8.9 Total Bilirubin 1.4 H AST 38 H ALT 54 Alkaline Phosphatase 64 Total Protein 7.9 Albumin 3.9 Urine Color Urine Appearance Urine pH Urine Protein Urine Glucose (UA) Urine Ketones Urine Blood Urine Nitrite Urine Bilirubin Urine Urobilinogen Ur Leukocyte Esterase Urine RBC Opiates Screen Methadone Screen Barbiturate Screen Phencyclidine Screen Ur Amphetamines Screen MDMA (Ecstasy) Screen Benzodiazepines Screen Cocaine Screen U Marijuana (THC) Screen Blood Type A POSITIVE Antibody Screen Negative 07/18/18 07/19/18 14:48 07:05 WBC RBC Hgb Hct MCV MCH MCHC RDW Plt Count MPV Absolute Neuts (auto) Neutrophils % Lymphocytes % Monocytes % Eosinophils % Basophils % Nucleated RBC % PT with INR 12.9 13.3 H INR 1.19 1.23 H PTT (Actin FS) 27.7 27.5 Sodium Potassium Chloride Carbon Dioxide Anion Gap BUN Creatinine Est GFR (CKD-EPI)AfAm Est GFR (CKD-EPI)NonAf Random Glucose Calcium Total Bilirubin AST ALT Alkaline Phosphatase Total Protein Albumin Urine Color Urine Appearance Urine pH Urine Protein Urine Glucose (UA) Urine Ketones Urine Blood Urine Nitrite Urine Bilirubin Urine Urobilinogen Ur Leukocyte Esterase Urine RBC Opiates Screen Methadone Screen Barbiturate Screen Phencyclidine Screen Ur Amphetamines Screen MDMA (Ecstasy) Screen Benzodiazepines Screen Cocaine Screen U Marijuana (THC) Screen Blood Type Antibody Screen Active Medications Generic Name Dose Route Start Last Admin Trade Name Freq PRN Reason Stop Dose Admin Acetaminophen 1,000 mg 07/18/18 21:33 Ofirmev Injection - IVPB Q6H PRN PAIN LEVEL 4 - 6 Sodium Chloride 1,000 mls @ 125 mls/hr 07/18/18 18:00 07/18/18 18:24 Normal Saline - IV 125 mls/hr ASDIR MARIO ALBERTO Administration Cefoxitin Sodium 2 gm/ 100 mls @ 200 mls/hr 07/19/18 10:00 Dextrose IVPB 07/20/18 02:29 Q8H-IV MARIO ALBERTO Protocol Morphine Sulfate 2 mg 07/18/18 21:29 07/18/18 22:34 Morphine Injection - IVPUSH 2 mg Q6H PRN Administration PAIN LEVEL 7 - 10 ASSESSMENT/PLAN 43 year-old male with a PMH significant for polysubstance abuse placed on observation for acute/subacute appendicitis. Acute v. subacute appendicitis --07/18 CTAP: proximal third of appendix slightly thickened; similar although more prominent appendiceal thickening seen earlier on 11/29/17 --seen and evaluated by surgery Dr. Gomez, plan is for OR this afternoon Polysubstance abuse --Utox positive for opiates, methadone, MDMA, and benzos --discussed with detox subspecialist Dr. Madden; post-op pain should be managed with IV Tylenol, motrin, and percocet 5/325 q4h PRN; methadone should NOT be given as patient is not currently enrolled in a methadone program FEN Fluids: NS@125mL/hr Electrolytes: replete as indicated Nutrition: NPO DVT prophylaxis: SCDs, oob, ambulation Dispo: 23 hour stay. Full code. Visit type - Emergency Visit Emergency Visit: Yes Care time: The patient presented to the Emergency Department on the above date and was hospitalized for further evaluation of their emergent condition. - New Patient This patient is new to me today: Yes Date on this admission: 07/19/18 - Critical Care Critical Care patient: No
[2018-07-19] MEDS ORDERED: CEFOXITIN SODIUM 2 GM in DEXTROSE 5%-WATER - 100 ML IVPB SCH (10:00)
[2018-07-19] MEDS ORDERED: CEFOXITIN SODIUM/DEXTROSE,ISO 2 GM/50 ML BAG IVPB SCH (10:07)
[2018-07-19 10:14] LABS: EOS % 5.7 % (0-4.5); HEMATOCRIT 35.6 % (35.4-49); HEMOGLOBIN 11.9 GM/dL (11.7-16.9); LYMPH % 40.1 % (8-40); MCHC 33.4 g/dl (32.0-35.9); MEAN CELL VOLUME 92.7 fl (80-96); MEAN PLT VOLUME 7.3 fl (7.5-11.1); MONO % 7.4 % (3.8-10.2); NEUT % 45.8 % (42.8-82.8); PLATELET COUNT 239 K/MM3 (134-434); RBC 3.84 M/mm3 (4.00-5.60); RDW 13.7 % (11.9-15.9); WHITE BLOOD COUNT 6.5 K/mm3 (4.0-10.0)
[2018-07-19 10:33] LABS: ALBUMIN 3.1 g/dl (3.4-5.0); CREATININE 0.8 mg/dL (0.55-1.3); MAGNESIUM 2.6 mg/dL (1.8-2.4); PHOSPHOROUS 3.4 mg/dL (2.5-4.9); POTASSIUM 4.6 mmol/L (3.5-5.1); TOT PROT 6.5 g/dl (6.4-8.2)
[2018-07-19] MEDS: morphine CARPU-JECT 2 MG/1 ML DISP.SYRIN IVPUSH PRN (12:14)
[2018-07-19] MEDS ORDERED: ROCURONIUM BROMIDE 50 MG/5 ML VIAL ONE ×2 (13:39→14:59)
[2018-07-19] MEDS ORDERED: HYDROmorphone HCL/PF 1 MG/ML AMP ONE (13:39)
[2018-07-19] MEDS ORDERED: PROPOFOL 20 ML ONE ×2 (13:39→15:50)
[2018-07-19] MEDS ORDERED: fentaNYL CITRATE 250 MCG/5 ML VIAL ONE ×2 (13:39→14:13)
[2018-07-19] MEDS ORDERED: SUCCINYLCHOLINE CHLORIDE 200 MG/10 ML VIAL ONE (13:39)
[2018-07-19] MEDS ORDERED: MIDAZOLAM HCL 2 MG/2 ML SINGLE DOSE VIAL ONE ×3 (13:39→14:13)
[2018-07-19] MEDS ORDERED: LIDOCAINE HCL/PF 2% SDV 5ML VIAL ONE (13:42)
[2018-07-19 15:15] LABS: ANISOCYTOSIS 0; MACROCYTOSIS 0; PLATELET ESTIMATE NORMAL
[2018-07-19] MEDS ORDERED: BUPIVACAINE HCL/PF 0.5% (5MG/ML) 10 ML VIAL ONE (15:45)
[2018-07-19] MEDS ORDERED: NEOSTIGMINE METHYLSULFATE 0.5 MG/ML - 10 ML MDV ONE (15:46)
[2018-07-19] MEDS ORDERED: BUPIVACAINE HCL/PF (5 MG/ML) 30 ML VIAL IJ ONE (15:48)
[2018-07-19] MEDS ORDERED: BENZOIN/ALOE VERA/STORAX/TOLU 58 ML BOTTLE ONE (15:53)
[2018-07-19] MEDS ORDERED: HYDROmorphone HCL CARPU-JECT 1 MG/1 ML DISP.SYRIN IVPUSH PRN (16:12)
[2018-07-19] MEDS ORDERED: ONDANSETRON 4 MG/2 ML VIAL IVPUSH PRN (16:12)
--- NOTE | 2018-07-19 16:14 | OP ---
Operative Note - Note: Operative Date: 07/19/18 Pre-Operative Diagnosis: subacute/recurrent appendicitis Operation: laparoscopic appendectomy Findings: minimally proximally enlarged appendix, mesoappendix stuck to veil of Treves Post-Operative Diagnosis: Same as Pre-op Surgeon: Faisal Gomez Anesthesiologist/STEM PROCESSING MACHINE OPERATOR: Vinh Moore Anesthesia: General, Local (20ml 0.5% marcaine) Specimens Removed: appendix to pathology Estimated Blood Loss (mls): 10 Drains & Tubes with Location: [place] out at case end Drains, Volume Out (mls): 450 (UOP) Fluid Volume Replaced (mls): 1,200 (crystalloid) Operative Report Dictated: Yes
[2018-07-19] MEDS ORDERED: LACTATED RINGERS SOLUTION 1,000 ML IV SCH ×2 (16:15→16:22)
[2018-07-19] MEDS ORDERED: IBUPROFEN 800 MG/8 ML IJ IVPB ONE ×2 (16:17→16:36)
[2018-07-19] MEDS ORDERED: oxyCODONE HCL 5 MG TABLET PO PRN (16:20)
[2018-07-19] MEDS ORDERED: HYDROmorphone HCL 0.5 MG/0.5 ML SYRINGE ONE (16:35)
--- NOTE | 2018-07-19 17:15 | EKG ---
Test Reason : Blood Pressure : / mmHG Vent. Rate : 079 BPM Atrial Rate : 079 BPM P-R Int : 152 ms QRS Dur : 084 ms QT Int : 404 ms P-R-T Axes : 047 023 002 degrees QTc Int : 463 ms NORMAL SINUS RHYTHM NORMAL ECG WHEN COMPARED WITH ECG OF 18-JUL-2018 14:57, NO SIGNIFICANT CHANGE WAS FOUND Confirmed by DAVE HERNANDEZ MD ([id number]) on 07/19/2018 5:15:14 PM Referred By: KATHI Puentes Confirmed By:DAVE HERNANDEZ MD
--- NOTE | 2018-07-19 17:22 | EKG ---
Test Reason : Blood Pressure : / mmHG Vent. Rate : 103 BPM Atrial Rate : 103 BPM P-R Int : 140 ms QRS Dur : 084 ms QT Int : 352 ms P-R-T Axes : 058 025 009 degrees QTc Int : 461 ms SINUS TACHYCARDIA OTHERWISE NORMAL ECG WHEN COMPARED WITH ECG OF 13-JUN-2018 17:18, NO SIGNIFICANT CHANGE WAS FOUND Confirmed by DAVE HERNANDEZ MD ([id number]) on 07/19/2018 5:22:20 PM Referred By: MARY JANE DWYER Confirmed By:DAVE HERNANDEZ MD
--- NOTE | 2018-07-19 18:23 | OP ---
DATE OF OPERATION: 07/19/2018 PREOPERATIVE DIAGNOSIS: Subacute/recurrent appendicitis. POSTOPERATIVE DIAGNOSIS: Subacute/recurrent appendicitis. PROCEDURE PERFORMED: Laparoscopic appendectomy. SURGEON: Faisal Gomez M.D. ANESTHESIA: General endotracheal and local, 20 mL of 0.5% Marcaine. ESTIMATED BLOOD LOSS: 10 mL. FLUIDS: 1200 mL of crystalloid. URINE OUTPUT: 450 mL. SPECIMEN: Appendix to Pathology. FINDINGS: Minimally proximally enlarged appendix. The mesoappendix was stuck to the veil of Treves. DISPOSITION: Stable and extubated to PACU. INDICATIONS FOR PROCEDURE: The patient is a 43-year-old polysubstance abuser who is also a pack a day smoker and obese, who presented to the emergency room yesterday with right lower quadrant pain beginning 2 nights prior. Initially he thought he may have pulled something wrestling with a friend, but later that night had sweating and low-grade fever at home. He developed anorexia with some nausea but no vomiting. He was using some heroin for the pain, but it persisted and he came to the emergency room, where he had a normal white count and was afebrile. A CT showed a mildly enlarged proximal third of the appendix. In November of last year he had also been seen for right lower quadrant pain, when a CT scan at the time showed a significantly enlarged and inflamed appendix, 1.3 cm, but he left against medical advice and was not treated at the time. In this case, the proximal third of the appendix is slightly larger than a more remote CT scan as well. He was both painful and tender over the right lower quadrant, with some focal guarding. He received IV fluids and some pain killers but no antibiotics. Surgery saw him early the next morning, where he was still painful and tender in the right lower quadrant with referred pain from the left lower quadrant. White count remained normal. He still had a little bit of nausea but no vomiting. The risks, benefits and alternatives of laparoscopic, possible open appendectomy were discussed with the patient, including but not limited to bleeding, infection, injury to adjacent structures, intestinal leak or injury, intra- abdominal abscess, incisional hernia, need for further procedures, and . Alternatives were also discussed, including antibiotics and delayed or no surgery, with attendant risks of failure of nonoperative therapy, perforation, sepsis, recurrence, and . At this time the patient desired to proceed with an operation, signed informed consent for the same, and is now brought to the OR for this procedure. Antibiotics were started at the time of consent being signed earlier this morning. He had 2 g of cefoxitin at approximately 10:15. At approximately 3 p.m. in the OR he received an additional gram of cefoxitin. OPERATIVE TECHNIQUE: The patient was brought to the operating room and laid supine on the operating table. Sequential compression devices were applied to bilateral lower extremities over the ANDRZEJ stockings he already had on. The antibiotics were given as noted above. After induction and intubation by Anesthesia, a Westfall catheter was placed in the patient's bladder, which was removed at the end of the case. His lower abdominal hair was clipped, and his lower abdomen prepped and draped in sterile fashion. A small infraumbilical midline incision was made with a scalpel and carried into the subcutaneous tissues with electrocautery, until the abdominal wall fascia was identified, scored and elevated with Dayo clamps. The peritoneum was entered bluntly with the tip of a clamp, and a fingertip inserted to ensure entry into the abdominal cavity and the absence of any underlying adhesions. A stay suture of 0 Vicryl in [id number] fashion was then placed in the fascia for later closure, and a Rita trocar introduced directly into the abdominal cavity and secured in place with the balloon. The abdomen was insufflated with carbon dioxide. The patient was placed in Trendelenburg position with the right side planed upward. The laparoscope was inserted to inspect the abdominal cavity. Two additional 5- mm ports were placed under direct vision in the left lower quadrant and suprapubic areas, and the camera switched to the left lower quadrant port. Two graspers were used through the operative ports to gently manipulate the small bowel medially and away from the right lower quadrant. The cecum was followed from its tenia down towards the appendix. When the base was identified, the appendix was grasped gently and elevated. The proximal portion of the appendix was noted to be potentially minimally enlarged. It did not appear significantly inflamed. Although the pelvis was difficult to visualize because of the patient's body habitus and limitations of Trendelenburg position, there was no yellow fluid or pus noted in the pelvis, even on later examination. The proximal portion of the mesoappendix was, however, stuck fairly firmly to the veil of Treves. Some blunt dissection with the graspers was used to separate this area. The appendix was grasped near the base and held up so that a window could be made with a [place] dissector in the mesentery at the base of the appendix, where it joined the cecum. A 45 purple load Endo FEDE stapler was then introduced and used to transect the base of the appendix at the cecal junction. The staple line was inspected for hemostasis and noted not to bleed. The appendix was then regrasped and held up, so that a 60 white load of the Endo FEDE stapler could be used to transect the mesoappendix. Because of the patient's body habitus and difficulty maneuvering the stapler into proper position, it was difficult to get the entire mesoappendix into the stapler load, and at one point a portion of the mesoappendix avulsed, leaving a very small piece only to transect with the stapler. The suction infant childcare provider device was used to suction some bloody fluid from the area in order to improve visualization, and the stapler used to transect the mesoappendix that was believed to hold the arterial supply in it, after which the staple line was carefully inspected and noted to be hemostatic. There was no active bleeding noted. There was a little bit of venous pooling in the area. This was suctioned and locally irrigated just once or twice to make sure that there was, in fact, no active bleeding. The area was suctioned clear, and again the pelvis was examined, to make sure that there was no purulent fluid down there. The appendix and the mesoappendix had split into 2 pieces. These were set aside for the moment while the operative field was inspected for hemostasis and cleaned up with the suction infant childcare provider. Once it was clear that there was no bleeding from the staple lines, and the blood supply in the mesoappendix was clearly stapled off, the appendix and the mesoappendix were grasped with the grasper and placed into the Endo Catch bag through the umbilical port site and retrieved out that location, after the suprapubic port was removed under direct vision, and the camera was used to follow the bag and appendix out the umbilical port site. As the abdomen was exsufflated of carbon dioxide, the left lower quadrant port and camera were also removed, and the abdomen exsufflated fully of carbon dioxide. The patient was returned to the neutral position. The stay suture at the umbilicus was tied to close the fascia there. Hemostasis was achieved in the port sites with electrocautery where necessary. Local anesthetic was infiltrated into all the port sites. The skin was closed with 4-0 Vicryl subcuticular sutures, including a running at the umbilicus. Benzoin and Steri-Strips were applied over each incision, and dressings of gauze and Tegaderm placed over these. At the end of the case, the Westfall catheter was also removed from the patient's bladder. Counts were correct at the end of the case. The patient was then awakened and extubated by Anesthesia. He was able to move himself back to a stretcher and was taken to the recovery room in stable condition, having tolerated the procedure well. Faisal Gomez M.D. [id number] MTDD
[2018-07-19] MEDS: ACETAMINOPHEN 500 MG TABLET (FP) PO SCH (18:26)
[2018-07-19] MEDS: IBUPROFEN 600 MG TABLET (FP) PO SCH (21:00)
[2018-07-19] MEDS: oxyCODONE HCL 5 MG TABLET PO PRN (21:58)
[2018-07-19] MEDS ORDERED: DOCUSATE SODIUM 100 MG CAPSULE (FP) PO SCH (22:00)
[2018-07-20] MEDS: oxyCODONE HCL 5 MG TABLET PO PRN ×2 (03:44→09:31)
[2018-07-20] MEDS: IBUPROFEN 600 MG TABLET (FP) PO SCH ×2 (05:10→09:05)
[2018-07-20] MEDS: ACETAMINOPHEN 500 MG TABLET (FP) PO SCH ×2 (06:20)
[2018-07-20 06:30] VITALS: BP 126/66; PULSE 72; TEMP 98.3
--- NOTE | 2018-07-20 10:35 | DS ---
Physical Exam: SUBJECTIVE: Patient seen and examined. Voices no complaints. Tolerating PO. + flatus OBJECTIVE: Vital Signs Period Temp Pulse Resp BP Sys/Alvarez Pulse Ox Last 24 Hr 97.7 F-98.6 F 72-95 13-19 109-149/63-87 93-97 PHYSICAL EXAM GENERAL: The patient is awake, alert, and fully oriented, in no acute distress. ABDOMEN: Soft, protuberant, three surgical port sites with sterile gauze and tegaderm, all c/d/i, no surrounding erythema EXTREMITIES: 2+ pulses, warm, well-perfused, no edema. NEUROLOGICAL: Cranial nerves II through XII grossly intact. Normal speech, gait not observed. PSYCH: Normal mood, normal affect. SKIN: Warm, dry, normal turgor, no rashes or lesions noted. LABS Laboratory Results - last 24 hr 07/19/18 07:05 WBC 6.5 RBC 3.84 L Hgb 11.9 Hct 35.6 MCV 92.7 MCH 31.0 MCHC 33.4 RDW 13.7 Plt Count 239 MPV 7.3 L Absolute Neuts (auto) 3.0 Neutrophils % 45.8 D Neutrophils % (Manual) 48.5 Band Neutrophils % 1.0 Lymphocytes % 40.1 H D Lymphocytes % (Manual) 41.2 H Monocytes % 7.4 Monocytes % (Manual) 2 L Eosinophils % 5.7 H D Eosinophils % (Manual) 4.1 Basophils % 1.0 Basophils % (Manual) 2.1 H Myelocytes % (Man) 0 Promyelocytes % (Man) 0 Blast Cells % (Manual) 0 Nucleated RBC % 0 Metamyelocytes 0 Hypochromia 0 Platelet Estimate Normal Polychromasia 0 Poikilocytosis 0 Anisocytosis 0 Microcytosis 0 Macrocytosis 0 HOSPITAL COURSE: Date of Admission:07/18/18 Date of Discharge: 07/20/18 43 year-old male with a PMH significant for polysubstance abuse placed on observation for subacute, recurrent appendicitis. Subacute, recurrent appendicitis s/p lap appendectomy 07/19 --07/18 CTAP: proximal third of appendix slightly thickened; similar although more prominent appendiceal thickening seen earlier on 11/29/17 --lap appy on 07/[address] Gomez --uneventful post-opertive course --perioperative antibiotics complete Polysubstance abuse --Utox positive for opiates, methadone, MDMA, and benzos --discussed with detox subspecialist Dr. Rod; post-op pain was managed with IV Tylenol, motrin, and percocet 5/325 q4h PRN Minutes to complete discharge: 35 Discharge Summary Reason For Visit: COCAINE DEPENDENCE,ABDOMINAL PAIN,OPIOID ABUSE Current Active Problems Abdominal pain (Acute) Anorexia (Acute) Appendicitis (Acute) Opioid abuse (Acute) Other appendicitis (Acute) Prophylactic measure (Acute) RLQ abdominal pain (Acute) Condition: Good - Instructions Diet, Activity, Other Instructions: Postoperative instructions: You had a laparoscopic appendectomy on 07/19/[address] Faisal Gomez of [facility]. Activity: Resume your usual activities gradually, but no heavy exertion or lifting more than 10-15 pounds for 1 month. Remove dressings 48 hours after surgery; sticky tapes underneath will fall off by themselves. You may shower daily starting then, just pat the incision areas dry. No bath or swimming until skin incisions have healed. Eat lightly at first, but advance to your usual diet as tolerated. Pain: For pain, you may use and alternate Tylenol (acetaminophen, regular or extra strength) 1-2 pills and/or ibuprofen 200 mg (1-3 pills) every 6 hours each as needed; this means that you can take one OR the other at 3-hour intervals. If you are prescribed a Tylenol/narcotic combination for severe pain , use it instead of plain Tylenol as needed and switch back when your pain starts decreasing. Do not take more than 4000mg of acetaminophen in a day. Take medications as prescribed or indicated on the labeling. Follow-up: Call Dr. Gomez's office at [phone] to make your postop appointment (Tuesday in approximately 2 weeks after surgery). Clinic is held in the [facility] on the first floor of [facility]. Call the office if you have: * increasing pain not responsive to pain medication * fever of 101F or higher * vomiting * unusual or increasing bleeding or drainage from wounds * increasing redness or swelling at wound sites Also, see your primary medical doctor within 1-2 weeks. Referrals: Faisal Gomez MD [Staff Physician] - Disposition: HOME - Home Medications Comprehensive Discharge Medication List: Ambulatory Orders NK [No Known Home Medication] 07/18/18 This patient is new to me today: No Emergency Visit: Yes Care time: The patient presented to the Emergency Department on the above date and was hospitalized for further evaluation of their emergent condition. Critical Care patient: No - Discharge Referral Referred to [facility] Med [facility].: No
--- NOTE | 2018-07-20 11:07 | PN ---
HC Provider Note Provider Note: Anesthesia Post -op Pt seen s/p GETA for lap appy Pt found awake and alert in bed dressed ready for D/c Pt denies n/v, SOB, urinary retention, puritis Pt ambulating well VSS no apparent anesthesia complications Orlin Peralta.
--- NOTE | 2018-07-25 17:22 | PATH ---
Surgical Pathology Report Patient Name: RON ROE Med. Rec. #: [id number] /Age/Gender: 1975 (Age: 43) / M Account: [id number] Location: [facility] MED-SURG Taken: 07/19/2018 Received: 07/19/2018 Reported: 07/25/2018 Physicians: Faisal Gomez M.D. Specimen(s) Received APPENDIX Clinical History Right lower quadrant abdominal pain, subacute/recurrent appendicitis Final Diagnosis APPENDIX, APPENDECTOMY: APPENDIX SHOWING FOCAL SUBMUCOSAL FIBROSIS, PERIAPPENDICEAL FAT NECROSIS WITH HISTIOCYTIC REACTION AND FIBROSIS. ONE REACTIVE LYMPH NODE. NO HISTOLOGIC EVIDENCE OF ACUTE APPENDICITIS. Electronically Signed Brendan Maravilla M.D. Gross Description Received in formalin, labeled "appendix," is a 5.5 cm. in length vermiform appendix with a stapled margin of resection and abundant attached fat. The serosa is garcia and smooth. Sectioning reveals a focally hemorrhagic appearing lumen. The wall of the appendix averages 0.1 cm. in thickness. There is a 0.8 cm in greatest dimension nodular lesion possible lymph node identified within the patricia-appendiceal fat. Jewelry Manager sections are submitted in one cassette. Additional sections are submitted as follows: 2-nodular lesion; 3-appendiceal margin of resection; 5-2-diyymtdkt of appendix. 07/20/201807/20/2018
== END 2018-07-20 13:19 | disposition home or self-care (01) ==
LOC: FER 14:27 → FM/S 19:51 → UNDOADMIN 19:51 → FASUSAT 21:29 → SUATTDRO 21:29 → FM/S 21:29 → FASUSAT 07-20 13:19
PROVIDERS: ATTEND Nurse Practitioner Acute Care
PROC: 0DTJ4ZZ Resection of Appendix, Percutaneous Endoscopic Approach (ICD-10-PCS; principal; 2018-07-18)
DX: K36 Other appendicitis (principal); F17.200 Nicotine dependence, unspecified, uncomplicated; F11.20 Opioid dependence, uncomplicated; F13.20 Sedative, hypnotic or anxiolytic dependence, uncomplicated; F14.20 Cocaine dependence, uncomplicated; R63.0 Anorexia; E66.9 Obesity, unspecified; Z68.34 Body mass index [BMI] 34.0-34.9, adult
CPT/HCPCS: 36415; 71045-TC-FY; 74177-TC; 80053; 80307; 81003; 81015; 82150; 83690; 83735; 84100; 85025; 85610; 85730; 86850; 86900; 86901; 87040; 88304-TC; 93005; 94760; 99284-25; J0131; J1644; J7030

== ENCOUNTER 2018-12-05 12:08 | Inpatient (IN) | payer OTHER ==
[2018-12-05 15:01] VITALS: BMI 36.7
--- NOTE | 2018-12-05 17:12 | HP ---
"COWS - Scale Resting Pulse: 1= [place] 81-100 Sweatin=Flushed/Facial Moisture Restless Observation: 1= Difficult to Sit Still Pupil Size: 0= Normal to Room Light (Pupils = 2 mm) Bone or Joint Aches: 0= None Runny Nose/ Eye Tearin= Nasal Congestion GI Upset > 30mins: 1= Stomach Cramp Tremor Observation: 2= Slight Tremor Visible Yawning Observation: 0= None Anxiety or Irritability: 1=Feels Anxious/Irritable Goose Flesh Skin: 0=Smooth Skin COWS Score: 9 CIWA Score - Admission Criteria OASAS Guidelines: Admission for Medically Managed Detox: Requires at least one of the followin. CIWA greater than 12 2. Seizures within the past 24 hours 3. Delirium tremens within the past 24 hours 4. Hallucinations within the past 24 hours 5. Acute intervention needed for co occurring medical disorder 6. Acute intervention needed for co occurring psychiatric disorder 7. Severe withdrawal that cannot be handled at a lower level of care (continued vomiting, continued diarrhea, abnormal vital signs) requiring intravenous medication and/or fluids 8. Admitting History and Physical - Past Medical History Psych: Yes: Addictions (heroin, tobacco) Musculoskeletal: Yes: Chronic low back pain (disc problems) - Smoking History Smoking history: Current every day smoker Have you smoked in the past 12 months: Yes Aproximately how many cigarettes per day: 20 (1PPD x 15yrs) - Alcohol/Substance Use Hx Alcohol Use: No (in past, but not for years) History of Substance Use: reports: Cocaine (in past, not recently), Heroin ( injection use), Prescription (has used oxycodone and methadone as well), Tranquilizers (clonazepam from [facility] recently) Date of Last Use: 07/17/18 (heroin, 2 bags) - Social History ADL: Independent 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 Patient states wants a 5 day detox, despite being explained the benefits of having a longer detox and the possiblity of protracted withdrawal symptoms. ROSARIO: 0.0 UTox: + FEN/MOP/OXY/MTD/BZO Denies hx of seizures, overdose or blackouts. Has a Narcan Kit at home. Longest period of sobriety [id number] while incarcerated) Last detox [facility] 06/2018. Opioid use began at age 26. Heroin @ 38. Uses approx 10-15 bags/day. States last used 4 bags heroin @ 5:am. IVDU. Denies sharing needles or works. Illicit Methadone @ 42. States uses between 30 and 50 mg 1-2 x/wk. Last used MTD 11 pm On 12/04 - states used 30 mg. Patient encouraged to consider a MMTP or 30 day out-patient detox. Nicotine use since age 18. Currently smokes 1 PPD. On prescribed Lorazepam and states taking. Denies Xanax use. Denies alcohol use. PMHX: Denies HTN despite current elevation in blood pressure. GERD. Sinus problems. Lower back pain. States chronic breast tissue pain of and on for 5-10 years. Patient strongly encouraged to f/u w/ HCP upon discharge. MHHx: ADHD/ADD. Panic attacks. Depression. No prozac x 1 week. Denies thoughts of harming self or others. States last saw MH Provider 2 weeks ago. SHx: Domiciled. Unemployed. Denies legal problems. Patient informed that dextroamp-amphetamin would not be prescribed while in [facility]. Lorazepam will need to be reviewed by Psych. Will order Klonopin x 24 hr until seen and evaluated by Psych. Patient Name: Too Ordoñez Date: 1975 Address: [address] [place] [address] Sex: Male Rx Written Rx Dispensed Drug Quantity Days Supply Prescriber Name 11/29/2018 11/29/2018 lorazepam 1 mg tablet 30 15 Nando Hollins MD 11/29/2018 11/29/2018 dextroamp-amphetamin 10 mg tab 60 30 Nando Hollins MD 11/22/2018 11/22/2018 dextroamp-amphetamin 10 mg tab 14 7 Nando Hollins MD 11/14/2018 11/14/2018 lorazepam 1 mg tablet 30 15 Nando Hollins MD 11/08/2018 11/09/2018 lorazepam 1 mg tablet 14 7 Nando Hollins MD 10/31/2018 11/02/2018 lorazepam 0.5 mg tablet 15 15 Nando Hollins MD 06/27/2018 06/27/2018 clonazepam 1 mg tablet 10 10 Dagmar, Ammisvetlana 12/08/2017 12/17/2017 clonazepam 1 mg tablet 10 10 Dagmar, Khurrammir S Patient Name: Too Ordoñez Date: 1975 Address: [address] [place] [address] Sex: Male Rx Written Rx Dispensed Drug Quantity Days Supply Prescriber Name 02/18/2018 02/22/2018 oxycodone hcl 5 mg tablet 90 30 Adrian Hooper M 01/04/2018 01/21/2018 oxycodone hcl 5 mg tablet 90 30 Adrian Hooper M 12/05/2017 12/09/2017 oxycodone hcl 5 mg tablet 90 30 Adrian Hooper M Search Terms: Too Ordoñez, 1975 Search Date: 12/05/2018 05:11:12 PM States Searched: [place], [place], [place], [place], [place], [place], [place] The Drug Utilization Report below displays the controlled substance prescriptions, if any, that were dispensed in the indicated state(s). The information displayed on this report is compiled from requests submitted to other states' PMPs, and accurately reflects the information as returned by them. Blank tirado indicate data not provided by other state. This report was requested by: Aylin Nina | Reference #: [id number] There are no results for the search terms that you entered. Exam Limitations: No Limitations - Ebola screening Have you traveled outside of the country in the last 21 days: No Have you had contact with anyone from an Ebola affected area: No Have you been sick,other than usual withdrawal symptoms: No Do you have a fever: No - Review of Systems Constitutional: Diaphoresis, Changes in sleep (Difficulty falling and staying asleep) EENT: reports: Blurred Vision, Nose Congestion, Dental Problems (Missing teeth. Chews and swallows ok.), Other (Acid reflux in throat) Respiratory: reports: No Symptoms reported Cardiac: reports: No Symptoms Reported GI: reports: Indigestion (Hx acid reflux), Abdominal cramping : reports: No Symptoms Reported Musculoskeletal: reports: Back Pain (Chronic achy low back pain. Pain triggers by standing too long. Decreases w/ lating down) Integumentary: reports: No Symptoms Reported Neuro: reports: Tremors Endocrine: reports: Increased Thirst Hematology: reports: No Symptoms Reported Psychiatric: reports: Orientated x3, Agitated, Anxious, Depressed (Denies thoughts of harming self or others.) Patient History - Patient Medical History Hx Anemia: No Hx Asthma: No Hx Chronic Obstructive Pulmonary Disease (COPD): No Hx Cancer: No Hx Cardiac Disorders: No Hx Congestive Heart Failure: No Hx Hypertension: No Hx Hypercholesterolemia: No Hx Pacemaker: No HX Cerebrovascular Accident: No Hx Seizures: No Hx Dementia: No Hx Diabetes: No Hx Gastrointestinal Disorders: No Hx Liver Disease: No Hx Genitourinary Disorders: No Hx Sexually Transmitted Disorders: No Hx Renal Disease (ESRD): No Hx Thyroid Disease: No Hx Human Immunodeficiency Virus (HIV): No Hx Hepatitis C: No Hx Depression: No Hx Suicide Attempt: No Hx Bipolar Disorder: No Hx Schizophrenia: No - Patient Surgical History Past Surgical History: Yes Hx Neurologic Surgery: No Hx Cataract Extraction: No Hx Cardiac Surgery: No Hx Lung Surgery: No Hx Breast Surgery: No Hx Breast Biopsy: No Hx Abdominal Surgery: No Hx Appendectomy: No Hx Cholecystectomy: No Hx Genitourinary Surgery: No Hx Section: No Hx Orthopedic Surgery: Yes (R hand sx in 1994) Other Surgical History: multiple musculo-skeletal injuries - PPD History Previous Implant?: Yes Documented Results: Negative w/proof Implanted On Prior [facility] Admission?: Yes Date: 06/15/18 Results: 0mm PPD to be Administered?: No - Smoking Cessation Smoking history: Current every day smoker Have you smoked in the past 12 months: Yes Aproximately how many cigarettes per day: 20 (1PPD x 15yrs) Hx Chewing Tobacco Use: No Initiated information on smoking cessation: Yes 'Breaking Loose' booklet given: 12/05/18 - Substance & Tx. History Hx Alcohol Use: No Hx Substance Use: Yes Substance Use Type: Cocaine, Heroin, Opiates Hx Substance Use Treatment: Yes (detox, rehab, no OTP's) - Substances abused Heroin Substance route: Injection Frequency: Daily Amount used: 10-15BAGS DAILY Age of first use: 38 Date of last use: 12/05/18 Alprazolam (Xanax) Substance route: Oral Frequency: Daily Amount used: 3 tablets of 2 mg Age of first use: 43 Date of last use: 07/04/18 Oxycontin Substance route: Oral Frequency: Daily Amount used: 25 mg /day Age of first use: 26 Date of last use: 07/04/18 Non-Rx Methadone Substance route: Oral Frequency: Daily Amount used: 30- 50MG Age of first use: 42 Date of last use: 12/05/18 Admission Physical Exam [facility] - Vital Signs Vital Signs: Vital Signs - 24 hr 12/05/18 14:55 Temperature 97.5 F L Pulse Rate 93 H Respiratory 20 Rate Blood Pressure 180/102 H - Physical General Appearance: Yes: Nourished, Mild Distress, Tremorous, Sweating ( Increased facial moisture), Anxious HEENTM: Yes: Hearing grossly Normal, Normal ENT Inspection, Normocephalic, Normal Voice, WILLY (Pupils = 2 mm), Nasal Congestion (Peforated Nasal Septum), Other (Tonsils stage 2. No lesions or exudate.) Respiratory: Yes: Lungs Clear (Pulse Oc = 96 %), No Respiratory Distress, Other (Cough productive of thick clearinsh/greenish phlegm) Neck: Yes: No masses,lesions,Nodules, Supple Breast: Yes: Breast Exam Deferred Cardiology: Yes: Regular Rhythm, Regular Rate, S1, S2 Abdominal: Yes: Non Tender, Soft, Increased Bowel Sounds, Protuberent Genitourinary: Yes: Within Normal Limits Back: Yes: Normal Inspection Musculoskeletal: Yes: full range of Motion, Gait Steady Extremities: Yes: Normal Capillary Refill, Normal Range of Motion, Tremors ( Mild tremors) Neurological: Yes: Fully Oriented, Alert, Motor Strength 5/5, Normal Response Integumentary: Yes: Normal Color, Warm, Diaphoresis (Increased facial moisture) , Track Dennis (Old and new track dennis (L) upper arm. No increased erythema or warmth.), Other (Dry, thickened, darkened skin from toes to mid calf (R) > (L)) - Diagnostic (1) Perforated nasal septum Current Visit: Yes Status: Acute (2) Benzodiazepine dependence Current Visit: No Status: Acute (3) IVDU (intravenous drug user) Current Visit: No Status: Acute (4) Nicotine dependence Current Visit: No Status: Acute Qualifiers: Nicotine product type: cigarettes Substance use status: uncomplicated Qualified Code(s): F17.210 - Nicotine dependence, cigarettes, uncomplicated (5) Opioid dependence with withdrawal Current Visit: No Status: Acute (6) Chronic back pain Current Visit: No Status: Chronic Qualifiers: Back pain location: low back pain (7) GERD (gastroesophageal reflux disease) Current Visit: No Status: Chronic Qualifiers: Esophagitis presence: without esophagitis Qualified Code(s): K21.9 - Gastro -esophageal reflux disease without esophagitis (8) Skin abnormality Current Visit: Yes Status: Acute Cleared for Admission S - Detox or Rehab [facility] Level of Care: Medically Managed Detox Regimen/Protocol: Methadone Claeared for Rehab Admission: No Breathalyzer - Breathalyzer Breathalyzer: 0 Urine Drug Screen - Test Device Lot number: [id number] Expiration date: 07/21/20 - Control Is test valid?: Yes - Results Drug screen NEGATIVE: No Urine drug screen results: FEN-Fentanyl, MOP-Opiates, OXY-Oxycodone, MTD- Methadone, BZO-Benzodiazepines Inpatient Rehab Admission - Rehab Decision to Admit Inpatient rehab admission?: No"
[2018-12-05] MEDS ORDERED: MAG HYDROX/AL HYDROX/SIMETH 30 ML UNIT-DOSE CUP PO PRN (18:17)
[2018-12-05] MEDS ORDERED: MENTHOL/PHENOL 1 EACH UD MM PRN (18:17)
[2018-12-05] MEDS ORDERED: MAGNESIUM HYDROX 2400MG/30ML ORAL SUSPENSION 30 ML CUP PO PRN (18:17)
[2018-12-05] MEDS ORDERED: BISMUTH SUBSALICYLATE 524 MG/30 ML UD PO PRN (18:17)
[2018-12-05] MEDS ORDERED: NICOTINE POLACRILEX 2 MG GUM BUC PRN (18:17)
[2018-12-05] MEDS ORDERED: MAGNESIUM CITRATE 300 ML BOTTLE PO PRN (18:17)
[2018-12-05] MEDS ORDERED: ACETAMINOPHEN 325 MG TABLET (FP) PO PRN ×2 (18:17)
[2018-12-05] MEDS: guaiFENesin 200 MG/10 ML 10 ML UNIT-DOSE CUPS PO SCH ×2 (19:51→23:54)
[2018-12-05] MEDS: clonazePAM 0.5 MG TABLET PO PRN (19:51)
[2018-12-05] MEDS: IBUPROFEN 400 MG TABLET (FP) PO PRN (19:52)
[2018-12-05] MEDS ORDERED: MELATONIN 5 MG TABLETS PO PRN (22:00)
[2018-12-05] MEDS ORDERED: METHADONE HCL 10 MG TABLET (FOR DETOX USE ONLY) PO ONE (22:00)
[2018-12-05] MEDS: THIAMINE HCL 100 MG TABLET (FP) PO SCH (22:12)
[2018-12-06] MEDS: clonazePAM 0.5 MG TABLET PO PRN ×3 (03:18→17:21)
[2018-12-06] MEDS: METHOCARBAMOL 500 MG TABLET PO PRN ×3 (03:18→21:39)
[2018-12-06] MEDS: guaiFENesin 200 MG/10 ML 10 ML UNIT-DOSE CUPS PO SCH ×3 (07:39→17:33)
[2018-12-06] MEDS ORDERED: METHADONE HCL 10 MG TABLET (FOR DETOX USE ONLY) PO ONE (10:00)
[2018-12-06] MEDS: PRENATAL VITAMINS W/ FOLIC ACID TABLET (FP) PO SCH (10:46)
[2018-12-06] MEDS: NICOTINE 21 MG/24 HOURS TOPICAL PATCH TD SCH (10:47)
[2018-12-06] MEDS: IBUPROFEN 400 MG TABLET (FP) PO PRN ×2 (10:48→17:21)
--- NOTE | 2018-12-06 11:37 | CONSULT ---
[facility] Psychiatric Consult - Data Date of interview: 12/06/18 Admission source: Self-referred Identifying data: Ms Ordoñez is a 43 years old single male, unemployed with no source of income, domiciled living in a one family house seeking detox treatment for opioid and benzodiazepine Substance Abuse History: Reports history of heroin, oxycontin, nonrx methadone and xanax use. Refer to adiction counselor's summary for further information use. Refer to addiction counselor's summary for further information Medical History: Significant for GERD, back pain, history of treatment for throat cancer and orthosurgery for fracture ofright hand in 1994. Smokes cigarettes 1 ppd Psychiatric History: Patient is known to sql report writer from an encounter during a recent admission to this facility in May 2018. Historical narrative remains consistent. He reports that he was in nursing home from [id number], [id number] and 2015- 2017. Reports while in nursing home, he spent a lot of time in solitary confinement. Told sql report writer that he saw a psychiatrist while in nursing home and he was diagnosed with PTSD. He said that he was offered medication but declined it. Reports that since his release, he has been feeling anxious, experiencing a lot of nightmares, flasbacks and being disturb by noises etc. When seen by sql report writer on , he was prescribed Melatonin 5 mg/hs prn for insomnia. Reports after his discharge, he saw his primary care physician in June 2018 and he was prescribed Wellbutrin SR 150 mg/bid & Klonopin 1 mg/day. He daid that PCP referred him to Dr Hollins, a private psychiatrist in [place] whom he saw 3 weeks ago and he was prescribed Prozac 20 mg/day, Ativan 1 mg/day and Adderall 20mg/bid. This confirmed by calling [facility] [phone] at [facility] [place] [id number].He told sql report writer that he stopped taking Adderall because he did not like how he was feeling while taking it. He requests not to take Prozac during this current admission. Denies previous psychiatric hospitalization or suicidal attempt. At present, reports feeling anxious and sleeping poorly Physical/Sexual Abuse/Trauma History: Denies history of emotional, physical or sexual abuse as well ass DV relationship Additional Comment: Reports history of previous arrests and has served in nursing home 3 times: [id number], [id number] and [id number]. He is currently on parole till April 2019 Mental Status Exam - Mental Status Exam Alert and Oriented to: Time, Place, Person Cognitive Function: Fair Patient Appearance: Well Groomed Mood: Anxious Affect: Appropriate Patient Behavior: Cooperative Speech Pattern: Clear Voice Loudness: Normal Thought Process: Intact, Goal Oriented Hallucinations: Denies Suicidal Ideation: Denies Homicidal Ideation: Denies Insight/Judgement: Poor Sleep: Poorly Appetite: Good Muscle strength/Tone: Normal Gait/Station: Normal Psychiatric Findings - Problem List ([place] 1, 2,3) (1) Anxiety disorder Current Visit: No Status: Chronic (2) PTSD (post-traumatic stress disorder) Current Visit: No Status: Ruled-out (3) Substance-induced anxiety disorder Current Visit: No Status: Acute (4) Substance-induced sleep disorder Current Visit: No Status: Acute (5) Opioid dependence with withdrawal Current Visit: No Status: Acute (6) Sedative hypnotic or anxiolytic dependence Current Visit: Yes Status: Acute (7) Nicotine dependence Current Visit: No Status: Chronic Qualifiers: Nicotine product type: cigarettes Substance use status: uncomplicated Qualified Code(s): F17.210 - Nicotine dependence, cigarettes, uncomplicated (8) Chronic back pain Current Visit: No Status: Chronic Qualifiers: Back pain location: low back pain (9) GERD (gastroesophageal reflux disease) Current Visit: No Status: Chronic Qualifiers: Esophagitis presence: without esophagitis Qualified Code(s): K21.9 - Gastro -esophageal reflux disease without esophagitis - Initial Treatment Plan Initial Treatment Plan: Continue inpatient detoxification
[2018-12-06] MEDS ORDERED: FLUoxetine HCL 20 MG CAPSULE (FP) PO SCH (12:00)
[2018-12-06] MEDS: cloNIDine HCL 0.1 MG TABLET PO PRN (12:07)
[2018-12-06 12:15] LABS: HEMATOCRIT 40.5 % (35.4-49); HEMOGLOBIN 13.5 GM/dL (11.7-16.9); MCH 30.6 pg (25.7-33.7); MCHC 33.2 g/dl (32.0-35.9); MEAN CELL VOLUME 92.2 fl (80-96); MEAN PLT VOLUME 7.2 fl (7.5-11.1); PLATELET COUNT 285 K/MM3 (134-434); RBC 4.39 M/mm3 (4.00-5.60); RDW 14.2 % (11.9-15.9); WHITE BLOOD COUNT 9.3 K/mm3 (4.0-10.0)
[2018-12-06 12:28] LABS: ALBUMIN 3.4 g/dl (3.4-5.0); BILIRUBIN,TOTAL 0.7 mg/dL (0.2-1); BLOOD UREA NITROGEN 10.9 mg/dL (7-18); CALCIUM 8.6 mg/dL (8.5-10.1); CREATININE 0.8 mg/dL (0.55-1.3); POTASSIUM 4.2 mmol/L (3.5-5.1); TOT PROT 7.1 g/dl (6.4-8.2)
--- NOTE | 2018-12-06 12:50 | PN ---
[facility] COWS - Scale Resting Pulse: 1= [place] 81-100 Sweatin= Chills/Flushing Restless Observation: 1= Difficult to Sit Still Pupil Size: 0= Normal to Room Light Bone or Joint Aches: 2= Severe Diffuse Aches Runny Nose/ Eye Tearin= Runny Nose/Eyes GI Upset > 30mins: 1= Stomach Cramp Tremor Observation of Outstretched Hands: 1= Tremor [place], Not Seen Yawning Observation: 1= 1-2x During Session Anxiety or Irritability: 2=Irritable/Anxious Goose Flesh Skin: 0=Smooth Skin COWS Score: 12 S Progress Note (SOAP) Subjective: c/o of body aches, interrupted sleep, chills Objective: 12/06/18 12:48 Vital Signs Temperature 98.1 F 12/06/18 09:50 Pulse Rate 86 12/06/18 09:50 Respiratory Rate 18 12/06/18 09:50 Blood Pressure 148/92 12/06/18 09:50 O2 Sat by Pulse Oximetry (%) Laboratory Last Values WBC 9.3 K/mm3 (4.0-10.0) 12/06/18 08:20 RBC 4.39 M/mm3 (4.00-5.60) 12/06/18 08:20 Hgb 13.5 GM/dL (11.7-16.9) 12/06/18 08:20 Hct 40.5 % (35.4-49) 12/06/18 08:20 MCV 92.2 fl (80-96) 12/06/18 08:20 MCH 30.6 pg (25.7-33.7) 12/06/18 08:20 MCHC 33.2 g/dl (32.0-35.9) 12/06/18 08:20 RDW 14.2 % (11.9-15.9) 12/06/18 08:20 Plt Count 285 K/MM3 (134-434) 12/06/18 08:20 MPV 7.2 fl (7.5-11.1) L 12/06/18 08:20 Sodium 142 mmol/L (136-145) 12/06/18 08:20 Potassium 4.2 mmol/L (3.5-5.1) 12/06/18 08:20 Chloride 104 mmol/L (98-107) 12/06/18 08:20 Carbon Dioxide 31 mmol/L (21-32) 12/06/18 08:20 Anion Gap 7 MMOL/L (8-16) L 12/06/18 08:20 BUN 10.9 mg/dL (7-18) 12/06/18 08:20 Creatinine 0.8 mg/dL (0.55-1.3) 12/06/18 08:20 Est GFR (CKD-EPI)AfAm 126.81 12/06/18 08:20 Est GFR (CKD-EPI)NonAf 109.41 12/06/18 08:20 Random Glucose 85 mg/dL (74-106) 12/06/18 08:20 Calcium 8.6 mg/dL (8.5-10.1) 12/06/18 08:20 Total Bilirubin 0.7 mg/dL (0.2-1) 12/06/18 08:20 AST 21 U/L (15-37) 12/06/18 08:20 ALT 42 U/L (13-61) 12/06/18 08:20 Alkaline Phosphatase 63 U/L (45-117) 12/06/18 08:20 Total Protein 7.1 g/dl (6.4-8.2) 12/06/18 08:20 Albumin 3.4 g/dl (3.4-5.0) 12/06/18 08:20 Assessment: 12/06/18 12:49 Aox3 no acute distress EENT WNL full ROM, ambulating the unit withdrawal sx Plan: increase fluids continue detox continue to monitor
[2018-12-06] MEDS: THIAMINE HCL 100 MG TABLET (FP) PO SCH (21:39)
[2018-12-07] MEDS: guaiFENesin 200 MG/10 ML 10 ML UNIT-DOSE CUPS PO SCH ×5 (01:34→23:38)
--- NOTE | 2018-12-07 09:48 | PN ---
[facility] COWS - Scale Resting Pulse: 0= [place] 80 or Below Sweatin= Chills/Flushing Restless Observation: 0= Sits Still Pupil Size: 0= Normal to Room Light Bone or Joint Aches: 1= Mild Discomfort Runny Nose/ Eye Tearin= None GI Upset > 30mins: 0= None Tremor Observation of Outstretched Hands: 1= Tremor [place], Not Seen Yawning Observation: 1= 1-2x During Session Anxiety or Irritability: 1=Feels Anxious/Irritable Goose Flesh Skin: 0=Smooth Skin COWS Score: 5 [facility] Progress Note (SOAP) Subjective: c/o interrupted sleep, chills, sweats Objective: 12/07/18 09:46 Vital Signs Temperature 97.9 F 12/07/18 06:28 Pulse Rate 70 12/07/18 06:28 Respiratory Rate 18 12/07/18 06:28 Blood Pressure 109/56 L 12/07/18 06:28 O2 Sat by Pulse Oximetry (%) Laboratory Last Values WBC 9.3 K/mm3 (4.0-10.0) 12/06/18 08:20 RBC 4.39 M/mm3 (4.00-5.60) 12/06/18 08:20 Hgb 13.5 GM/dL (11.7-16.9) 12/06/18 08:20 Hct 40.5 % (35.4-49) 12/06/18 08:20 MCV 92.2 fl (80-96) 12/06/18 08:20 MCH 30.6 pg (25.7-33.7) 12/06/18 08:20 MCHC 33.2 g/dl (32.0-35.9) 12/06/18 08:20 RDW 14.2 % (11.9-15.9) 12/06/18 08:20 Plt Count 285 K/MM3 (134-434) 12/06/18 08:20 MPV 7.2 fl (7.5-11.1) L 12/06/18 08:20 Sodium 142 mmol/L (136-145) 12/06/18 08:20 Potassium 4.2 mmol/L (3.5-5.1) 12/06/18 08:20 Chloride 104 mmol/L (98-107) 12/06/18 08:20 Carbon Dioxide 31 mmol/L (21-32) 12/06/18 08:20 Anion Gap 7 MMOL/L (8-16) L 12/06/18 08:20 BUN 10.9 mg/dL (7-18) 12/06/18 08:20 Creatinine 0.8 mg/dL (0.55-1.3) 12/06/18 08:20 Est GFR (CKD-EPI)AfAm 126.81 12/06/18 08:20 Est GFR (CKD-EPI)NonAf 109.41 12/06/18 08:20 Random Glucose 85 mg/dL (74-106) 12/06/18 08:20 Calcium 8.6 mg/dL (8.5-10.1) 12/06/18 08:20 Total Bilirubin 0.7 mg/dL (0.2-1) 12/06/18 08:20 AST 21 U/L (15-37) 12/06/18 08:20 ALT 42 U/L (13-61) 12/06/18 08:20 Alkaline Phosphatase 63 U/L (45-117) 12/06/18 08:20 Total Protein 7.1 g/dl (6.4-8.2) 12/06/18 08:20 Albumin 3.4 g/dl (3.4-5.0) 12/06/18 08:20 Assessment: 12/07/18 09:46 Aox3 no acute distress EENT WNL Full no gait disturbance ambulating in the unit withdrawal sx Plan: increase PO fluids Patient requested one day early d/c, d/r need to personal reasons, reports improvement in withdrawal sx. If stable may d/c in AM Follow up with referral to [facility] Continue to monitor
[2018-12-07] MEDS ORDERED: METHADONE HCL 10 MG TABLET (FOR DETOX USE ONLY) PO ONE (10:00)
[2018-12-07] MEDS: PRENATAL VITAMINS W/ FOLIC ACID TABLET (FP) PO SCH (10:13)
[2018-12-07] MEDS: NICOTINE 21 MG/24 HOURS TOPICAL PATCH TD SCH (10:15)
[2018-12-07] MEDS: cloNIDine HCL 0.1 MG TABLET PO PRN ×3 (10:16→22:17)
[2018-12-07] MEDS: IBUPROFEN 400 MG TABLET (FP) PO PRN ×2 (10:17→17:39)
[2018-12-07] MEDS: hydrOXYzine PAMOATE 25 MG CAPSULE (FP) PO PRN ×2 (15:18→22:17)
[2018-12-07] MEDS: METHOCARBAMOL 500 MG TABLET PO PRN ×2 (15:18→22:17)
[2018-12-07] MEDS: THIAMINE HCL 100 MG TABLET (FP) PO SCH (22:17)
[2018-12-08] MEDS: guaiFENesin 200 MG/10 ML 10 ML UNIT-DOSE CUPS PO SCH (06:04)
[2018-12-08] MEDS: IBUPROFEN 400 MG TABLET (FP) PO PRN (06:06)
[2018-12-08 08:47] VITALS: BP 102/65; PULSE 74; TEMP 97.9
--- NOTE | 2018-12-08 09:18 | DS ---
[facility] Detox Discharge Summary Admission Date: 12/05/18 Discharge Date: 12/08/18 - History Present History: Cocaine Dependence, Opioid Dependence, Sedative Dependence - Physical Exam Results Vital Signs: Vital Signs Temperature 97.9 F 12/08/18 06:30 Pulse Rate 74 12/08/18 06:30 Respiratory Rate 18 12/08/18 06:30 Blood Pressure 102/65 12/08/18 06:30 O2 Sat by Pulse Oximetry (%) Pertinent Admission Physical Exam Findings: pt arrived in withdrawals Laboratory Tests 12/06/18 12/06/18 12/06/18 08:20 08:20 08:20 WBC 9.3 RBC 4.39 Hgb 13.5 Hct 40.5 MCV 92.2 MCH 30.6 MCHC 33.2 RDW 14.2 Plt Count 285 MPV 7.2 L Sodium 142 Potassium 4.2 Chloride 104 Carbon Dioxide 31 Anion Gap 7 L BUN 10.9 Creatinine 0.8 Est GFR (CKD-EPI)AfAm 126.81 Est GFR (CKD-EPI)NonAf 109.41 Random Glucose 85 Calcium 8.6 Total Bilirubin 0.7 AST 21 ALT 42 Alkaline Phosphatase 63 Total Protein 7.1 Albumin 3.4 RPR Titer Nonreactive today pt is aaox3 ambulating no acute distress no s/s of withdrawals - Treatment Hospital Course: Detox Protocol Followed, Detoxed Safely, Responded well, Discharged Condition Good, Rehab Referral Accepted Patient has Accepted a Rehab Referral to: pt declined rehab; referral provided - Medication Discharge Medications: Ambulatory Orders Dextroamphetamine/Amphetamine [Adderall 10 mg Tablet] 10 mg PO BID 12/05/18 Fluoxetine HCl [Prozac -] 20 mg PO DAILY 12/05/18 - Diagnosis (1) Perforated nasal septum Current Visit: Yes Status: Acute (2) Sedative hypnotic or anxiolytic dependence Current Visit: Yes Status: Chronic (3) Skin abnormality Current Visit: Yes Status: Acute (4) Cocaine dependence Current Visit: Yes Status: Chronic (5) Benzodiazepine dependence Current Visit: Yes Status: Chronic (6) IVDU (intravenous drug user) Current Visit: Yes Status: Acute (7) Opioid dependence with withdrawal Current Visit: Yes Status: Chronic (8) Substance-induced anxiety disorder Current Visit: No Status: Acute (9) Substance-induced sleep disorder Current Visit: No Status: Acute (10) Anxiety disorder Current Visit: No Status: Chronic (11) Chronic back pain Current Visit: Yes Status: Chronic Qualifiers: Back pain location: low back pain (12) GERD (gastroesophageal reflux disease) Current Visit: Yes Status: Chronic Qualifiers: Esophagitis presence: without esophagitis Qualified Code(s): K21.9 - Gastro -esophageal reflux disease without esophagitis (13) Nicotine dependence Current Visit: Yes Status: Chronic Qualifiers: Nicotine product type: cigarettes Substance use status: uncomplicated Qualified Code(s): F17.210 - Nicotine dependence, cigarettes, uncomplicated (14) Substance induced mood disorder Current Visit: No Status: Suspected - AMA Did Patient Leave Against Medical Advice: No
[2018-12-08] MEDS ORDERED: METHADONE (DETOX) 10 MG, METHADONE (DETOX) 5 MG PO ONE (10:00)
[2018-12-08] MEDS ORDERED: METHADONE HCL 10 MG TABLET (FOR DETOX USE ONLY) PO ONE (10:00)
[2018-12-09] MEDS ORDERED: METHADONE HCL 10 MG TABLET (FOR DETOX USE ONLY) PO ONE (10:00)
== END 2018-12-08 09:14 | disposition home or self-care (01) | DRG 773 ==
LOC: YASAS 12:08 → Y6N 18:52
PROVIDERS: ADMIT Allergy & Immunology; ATTEND Allergy & Immunology
PROC: HZ2ZZZZ Detoxification Services for Substance Abuse Treatment (ICD-10-PCS; principal; 2018-12-05)
DX: F11.23 Opioid dependence with withdrawal (principal); F13.20 Sedative, hypnotic or anxiolytic dependence, uncomplicated; F14.20 Cocaine dependence, uncomplicated; F17.210 Nicotine dependence, cigarettes, uncomplicated; F19.24 Other psychoactive substance dependence with psychoactive substance-induced mood disorder; F19.280 Other psychoactive substance dependence with psychoactive substance-induced anxiety disorder; F19.282 Other psychoactive substance dependence with psychoactive substance-induced sleep disorder; F41.9 Anxiety disorder, unspecified; F43.10 Post-traumatic stress disorder, unspecified; K21.9 Gastro-esophageal reflux disease without esophagitis; M54.5 Low back pain; G89.29 Other chronic pain; J34.89 Other specified disorders of nose and nasal sinuses; L98.8 Other specified disorders of the skin and subcutaneous tissue
CPT/HCPCS: 36415; 80053; 85027; 86593; J0735

== ENCOUNTER 2019-03-30 12:30 | Emergency (ER) | payer OTHER ==
[2019-03-30 12:45] VITALS: BP 150/92; PULSE 110; TEMP 98.4; BMI 36.9
--- NOTE | 2019-03-30 12:55 | PDOC ---
Attending Attestation - Resident Resident Name: Brenda Encarnacion - ED Attending Attestation I have performed the following: I have examined & evaluated the patient, The case was reviewed & discussed with the resident, I agree w/resident's findings & plan - HPI HPI: 03/30/19 12:51 44 YOM presenting with penile foreskin laceration took sialis last night prior to intercourse, not his medication he became fully erect and performed intercourse, then started having pain and bleeding. no urethral discharge, no urinary sx. no abdominal pain. no other injuries +mild burning with urination, used gauze and tape to control the bleeding. - Physicial Exam PE: 03/30/19 12:53 Agree with resident exam, no abdominal tenderness, no rebound or guarding, exam performed with the resident, no testicular tenderness, normal scrotal lie. V shaped midline ventral foreskin laceration approximately 1 to 2 cm, no active bleeding. No urethral discharge, uncircumcised foreskin - Medical Decision Making 03/30/19 12:54 Vital Signs Temp Pulse Resp BP Pulse Ox 98.4 F 110 H 16 150/92 98 03/30/19 12:33 03/30/19 12:33 03/30/19 12:33 03/30/19 12:33 03/30/19 12:33 vs notable for tachycardia, but anxious bleeding controlled ventral foreskin laceration, no urethral involvement, normal testicles/scrotum. abdomen benign topical bacitracin and dressing. wound care instructions, infection control. construction project assistant urologist Dr Kwon, will see in the office now at [facility], will get pt discharged to urologist for evaluation and definitive management. DC stable condition. pt verbalized understanding of impression and plan. avoid taking sialis or medications not prescribed to him, as likely contributor to injury. 03/30/19 12:57
--- NOTE | 2019-03-30 12:56 | PDOC ---
History of Present Illness - General Chief Complaint: Laceration Stated Complaint: UNCIRCUMISED TORE FORESKIN LAST NIGHT Time Seen by Provider: 03/30/19 12:33 History Source: Patient Exam Limitations: No Limitations - History of Present Illness Initial Comments: 03/30/19 13:07 44y M presenting to ED with laceration to foreskin. Pt states he took Cialis last night and felt a tear during intercourse. Pt stated he noticed bleeding and tried cleaning with peroxide. He says this AM he felt burning and pain when he urinated and also saw blood. Denies urethral discharge, testicular pain , fevers chills, swelling. Past History - Past Medical History Allergies/Adverse Reactions: Allergies Allergy/AdvReac Type Severity Reaction Status Date / Time No Known Allergies Allergy Verified 12/05/18 14:53 Home Medications: Ambulatory Orders NK [No Known Home Medication] 03/30/19 Anemia: No Asthma: No Cancer: No Cardiac Disorders: No CVA: No COPD: No CHF: No Dementia: No Diabetes: No GI Disorders: No Disorders: No HTN: No Hypercholesterolemia: No Kidney Stones: No Liver Disease: No Seizures: No Thyroid Disease: No Other medical history: BACK PROBLEMS, SHOULDER INJURY - Surgical History Abdominal Surgery: No Appendectomy: Yes Cardiac Surgery: No Cholecystectomy: No Lung Surgery: No Neurologic Surgery: No Orthopedic Surgery: Yes (R hand sx in 1994) - Reproductive History Testicular Surgery: No - Immunization History Td Vaccination: Yes Immunization Up to Date: Yes - Psycho Social/Smoking Cessation Hx Smoking Status: Yes Smoking History: Current every day smoker Have you smoked in the past 12 months: Yes Number of Cigarettes Smoked Daily: 20 Information on smoking cessation initiated: Yes 'Breaking Loose' booklet given: 12/05/18 Hx Alcohol Use: Yes (RARE) Drug/Substance Use Hx: Yes (OPIODS) Substance Use Type: Cocaine, Heroin, Opiates Hx Substance Use Treatment: Yes (detox, rehab, no OTP's) Review of Systems - Review of Systems Constitutional: No: Symptoms Reported HEENTM: No: Symptoms Reported Respiratory: No: Symptoms reported Cardiac (ROS): No: Symptoms Reported ABD/GI: No: Symptoms Reported : No: Symptoms Reported Musculoskeletal: No: Symptoms Reported Integumentary: Yes: See HPI Neurological: No: Symptoms reported *Physical Exam - Vital Signs Last Vital Signs Temp Pulse Resp BP Pulse Ox 98.4 F 110 H 16 150/92 98 03/30/19 12:33 03/30/19 12:33 03/30/19 12:33 03/30/19 12:33 03/30/19 12:33 - Physical Exam General Appearance: Yes: Nourished, Appropriately Dressed. No: Apparent Distress HEENT: positive: EOMI, WILLY, Normal ENT Inspection Male Genitalia: positive: other (uncircumcised, laceration of ventral aspect of foreskin at attachement to head of penis, V shaped, 2cm, superficial. ). negative: discharge, testicular tenderness, testicular mass Medical Decision Making - Medical Decision Making 03/30/19 13:10 44y M presenting with laceration to foreskin. no other genital abnormalities. will contact urology. spoke to urology pmo consultant, advised bacitracin and no intercourse. will see patient in office today. given bacitracin. will see urology now. given return precautions. Discharge - Discharge Information Problems reviewed: Yes Clinical Impression/Diagnosis: Foreskin problem Condition: Stable Disposition: HOME - Admission No - Follow up/Referral Referrals: Yudelka Leavitt MD [Primary Care Provider] - Carlos Pearson MD [Staff Physician] - - Patient Discharge Instructions Additional Instructions: You were seen in the emergency room for a laceration. The urologist, Dr. Pearson will see you in office today. He recommends putting the ointment on. Do not have intercourse until you are healed. \ clean with water and mild soap only. Dr. Pearson's office is located on [address] [place] [address] Let the lockstitch front edge tape sewer know you were seen in the emergency room and advised to go to the office. Please come back to the emergency room if you notice abnormal discharge, swelling, discoloration or if any new or concerning symptom develops. Thank you - Post Discharge Activity
== END 2019-03-30 13:03 | disposition home or self-care (01) ==
LOC: FER 12:30
DX: N48.89 Other specified disorders of penis (principal); F17.210 Nicotine dependence, cigarettes, uncomplicated
CPT/HCPCS: 99282-25